=== PATIENT | female | born 1965 | race Caucasian/White ===

== ENCOUNTER 2017-03-12 18:07 | Emergency (ER) | payer MEDICAID, SELFPAY ==
[2017-03-12 18:08] VITALS: BP 156/72; PULSE 73; RESP 16; TEMP 36.6; O2SAT 98; BMI 29.2
--- NOTE | 2017-03-12 18:37 | CT_ITS ---
STUDY: CT ABDOMEN AND PELVIS WITHOUT CONTRAST REASON FOR EXAM: Female, 51 years old. Left flank pain and history of kidney stones RADIATION DOSAGE (If Supplied By Facility): CTDIvol = ( 13.59 ) mGy, DLP = ( 629.11 ) mGycm TECHNIQUE: Transaxial images were obtained from the dome of the diaphragm to the symphysis pubis without oral contrast, and without intravenous contrast. Sagittal and coronal images were reconstructed. Individualized dose optimization techniques were used for this CT. COMPARISON: None. FINDINGS: The visualized lung bases are unremarkable. The visualized portions of the heart are within normal limits. Normal liver. There is a solitary gallstone. Normal spleen. Normal pancreas. Normal bilateral adrenal glands. Multiple punctate nonobstructing nephroliths and a 5 mm urolith in the renal pelvis. Multiple punctate nonobstructing nephroliths noted on the left. There is a 3 mm to 4 stone at the left ureteropelvic junction causing mild hydronephrosis. Normal visualized stomach. Normal small intestine. Normal colon. There is non-visualization of the appendix. Normal abdominal aorta. Normal inferior vena cava. Normal retroperitoneum. Normal urinary bladder. Uterus appears normal. Normal abdominal wall. Normal osseous structures. CT/Abdomen/Pelvis without Cont IMPRESSION: Mild left hydronephrosis due to a 3 to 4 mm ureterolith at the ureteropelvic junction. Multiple punctate bilateral nonobstructing nephroliths. Gallstone. Electronically Signed: Amandeep Benoit MD at 19:52 EST , Service support ,
[2017-03-12] MEDS: 0.9% Normal Saline 1,000 ML 1000 ML IV (18:45)
[2017-03-12] MEDS: Ondansetron 4 MG/2 ML Vial IV (18:45)
[2017-03-12 18:47] VITALS: BP 160/79; PULSE 78; RESP 14; O2SAT 98
[2017-03-12 18:53] LABS: Mucous, Urine 0 SEEN /hpf (<or=2+); Squamous Epithelial Cells - UA 0 SEEN /hpf (5-10)
[2017-03-12 18:57] LABS: Absolute Lymphocyte Count 1.61 X10^3/ul (0.83-4.51); Absolute Neutrophil Count 13.1 X10^3/uL (2.0-7.7); Basophil# 0.02 X10^3/uL; Basophil% 0.1 % (0-1); Eosinophil# 0.06 X10^3/uL; Eosinophils% 0.4 % (0-5); Hematocrit 39.9 % (37-47); Lymphocyte # 1.61 X10^3/ul (4.0); Lymphocyte % 10.5 % (19-41); Mean Corp Hgb Conc 32.6 g/gl (32-36); Mean Corpuscular Hgb 27.7 pg (27.0-32.0); Mean Corpuscular Volume 85.1 fL (81-99); Mean Platelet Vol. 11.4 fl (6.2-12.0); Monocyte# 0.54 X10^3/uL; Monocyte% 3.5 % (0-10); Neutrophil # 13.05 X10^3/uL (2.7-7.7); Neutrophil % 85.4 % (47-70); Platelet Count 329 K/mm3 (150-450); RBC Distribution Width CV 13.4 % (11.6-14.6); RBC Distribution Width SD 41.1 fl (35.1-43.9); Red Blood Count 4.69 M/mm3 (4.2-5.4); White Blood Count 15.3 K/mm3 (4.4-11.0)
[2017-03-12 18:58] LABS: POSITIVE COUNT NO; POSITIVE DIFFERENTIAL NO; POSITIVE MORPHOLOGY NO
[2017-03-12 19:04] LABS: Color, Urine Brown (Yellow); Glucose, Dipstick 250 mg/dl (Normal); Internal QC Validated? YES +Cl - CLEAR BKGD; Ketone-Dipstick 50 mg/dl (Negative); Leukocyte Esterase-Dipstick 100 /ul (Negative); Nitrite-Dipstick Negative (Negative); Occult Blood-Urine 250 /ul (Negative); Pregnancy, Urine Negative Negative; Protein-Dipstick 100 mg/dl (Negative); Specific Gravity, Urine 1.025 (1.002-1.030); Urine Bilirubin Dipstick Negative (Negative); Urine Clarity Turbid (Clear); Urine Urobilinogen Normal (Normal); Urine pH 6.5 (5.0 - 8.0)
[2017-03-12 19:06] VITALS: BP 156/78; PULSE 77; RESP 15; O2SAT 97
[2017-03-12 19:09] LABS: Bacteria 1+ /hpf (None Seen); Red Blood Cells-Urine > 100 SEEN /hpf (0-5); White Blood Cells 0-5 SEEN /hpf (0-5)
[2017-03-12 19:10] LABS: Yeast-Urine RARE /hpf (None Seen)
[2017-03-12 19:16] LABS: ALB/GLOB Ratio 1.2 RATIO (0.9-2.4); AST(SGOT) 13 U/L (15-37); Alanine Aminotransfer ALT/SGPT 18 U/L (12-78); Albumin, Serum 4.2 g/dL (3.4-5.0); Alkaline Phosphatase 81 U/L (45-117); Anion Gap 9 (5-15); BUN 16 mg/dL (7-18); BUN/Creat Ratio 15.5 RATIO (10-20); Calcium,Total 8.8 mg/dL (8.5-10.1); Chloride 102 mmol/L (98-107); Creatinine, Serum 1.03 mg/dL (0.55-1.02); EST Glomerular Filtration Rate 60 mL/min (>60); Est Glom Filt Rate - Afr Amer 73 mL/min (>60); Estimated Creatinine Clearance 54.65 ml/min; Globulin 3.6 g/dL (2.2-4.2); Glucose 205 mg/dL (70-110); Lipase 492 U/L (73-393); Potassium 3.8 mmol/L (3.5-5.1); Protein, Total 7.8 g/dL (6.4-8.2); Sodium Level 137 mmol/L (136-145)
[2017-03-12] MEDS: Ketorolac 30 MG/ML Syringe IV (19:42)
[2017-03-12 20:49] VITALS: BP 169/69; PULSE 93; RESP 16; O2SAT 97
--- NOTE | 2017-03-12 20:50 | ED.VISSUMM ---
- ER Visit Summary Date of Service: 03/12/17 Chief Complaint: Flank pain History of Present Illness: The patient is a 51 F who states that she was recently started back on her medications for diabetes and hypothyroidism. She states she has had nausea vomiting diarrhea and she had her diabetes medicine changed. Now she notes pain on her left side with worsening nausea vomiting. She also notes blood in the urine. She notes a remote history of kidney stones. No fevers. Physical Examination: Febrile vital signs are stable. Patient has some mild left-sided CVA tenderness and left lower quadrant abdominal tenderness. She appears uncomfortable. Test Results: Labs show hematuria. CT the flank demonstrated a 3-4 mm proximal stone with mild hydronephrosis. Emergency Department Course and Treatment: Received morphine Zofran and Toradol. Her pain is improved. She will be discharged home on Jackson Zofran and Flomax. She is to follow-up with Dr. Key from urology Impression: 1. Left kidney stone with colic This note was generated with [employer] dictation software. It may contain incorrect words, spelling, and punctuation that were not noted in review of the chart prior to signing ED Disposition - Plan for ED Patient: Disposition: Home or Assisted Living Chief Complaint: Flank Pain Instructions: ED Stone Renal W Colic Prescriptions: Hydrocodone Bitart/Apap 5-325 [Jackson 5/325] 1 - 2 tab PO Q4H PRN PRN #20 tab PRN Reason: Pain Ondansetron [Zofran Odt] 4 mg PO Q8H PRN PRN #10 tab PRN Reason: Nausea Tamsulosin HCl [Flomax] 0.4 mg PO DAILY #7 cap Referrals: Ivan Bello DO [Primary Care Provider] - Fadi Key MD [STAFF PHYSICIAN] - Additional Instructions: If you are worsening or feel your pain is not controlled please return to the emergency department Drink fluids to keep urinating If you feel like you are lightheaded or your blood pressure is low please discontinue the Flomax. Take the Flomax only when going to bed.
[2017-03-12] MEDS: HYDROcodone Bitartrate/Apap 5/325 Tablet PO (21:04)
[2017-03-12 21:06] VITALS: BP 169/69; PULSE 93; RESP 16; O2SAT 97
== END 2017-03-12 21:06 | disposition home or self-care (01) ==
PROVIDERS: Emergency Provider Emergency Medicine; Family Provider Student in an Organized Health Care Education/Training Program; PCP Student in an Organized Health Care Education/Training Program
DX: N20.0 Calculus of kidney (principal); E11.9 Type 2 diabetes mellitus without complications; N13.30 Unspecified hydronephrosis; E03.9 Hypothyroidism, unspecified
CPT/HCPCS: 74176; 80053; 81001; 81025; 83690; 84484; 85025; 96361; 96374; 96375; 96376; 99284; J7030; A4216; J2405

== ENCOUNTER 2017-03-14 14:24 | Observation (INO) | payer OTHER, MEDICAID, SELFPAY ==
[2017-03-14 14:25] VITALS: BP 110/50; PULSE 72; RESP 18; TEMP 36.8; O2SAT 97; BMI 30.2
--- NOTE | 2017-03-14 15:17 | CT_ITS ---
STUDY: CT ABDOMEN AND PELVIS WITHOUT CONTRAST REASON FOR EXAM: Female, 51 years old. Bilateral flank pain RADIATION DOSAGE (If Supplied By Facility): CTDIvol = ( 12.70 ) mGy, DLP = ( 618.76 ) mGycm TECHNIQUE: Transaxial images were obtained from the dome of the diaphragm to the symphysis pubis without oral contrast, and without intravenous contrast. Sagittal and coronal images were reconstructed. Individualized dose optimization techniques were used for this CT. COMPARISON: None. FINDINGS: The visualized lung bases are clear. The visualized portions of the heart and pericardium are within normal limits. There are calcified gallstones noted. The liver demonstrates an unremarkable unenhanced appearance. The spleen is normal in size. The pancreas demonstrates an unremarkable unenhanced appearance. The adrenal glands are within normal limits. There is a stable 3 mm stone in the left proximal ureter with mild left hydronephrosis. There is a 4 mm stone in the right proximal ureter with mild right hydronephrosis. There are punctate bilateral nonobstructing collecting system stones. Normal visualized stomach. There is no bowel obstruction or inflammation. The appendix is visualized and appears normal. The aorta is normal in caliber. There is a small amount of free fluid. There is no free air, fluid collection or lymphadenopathy. There are no destructive osseous lesions. CT/Abdomen/Pelvis without Cont IMPRESSION: Stable 3 mm stone in the left proximal ureter with mild left hydronephrosis. 4 mm stone in the right proximal ureter with mild right hydronephrosis. Small amount free fluid. Electronically Signed: Dimitry Wiggins, at 16:26 EST Tel , Service support ,
--- NOTE | 2017-03-14 15:18 | ED.VISSUMM ---
- ER Visit Summary Date of Service: 03/14/17 Chief Complaint: Right flank pain and abdominal pain History of Present Illness: The patient is a 51 F who was diagnosed with a kidney stone on the left 2 days ago who now presents with flank pain and abdominal pain on the right. Patient states the left-sided abdominal pain had resolved, and she has been straining her urine but did not have a stone. Now she is having right-sided flank pain as of this morning that is radiating around into the right groin. Pain is not controlled with her home pain medications. She has associated nausea and vomiting. Also hematuria. No dysuria, fever, diarrhea, shortness of breath or chest pain. Patient still has her appendix and gallbladder. Physical Examination: Vital signs: afebrile, hemodynamically stable, no hypoxia on room air General: well nourished, well developed, in no distress appears uncomfortable Skin: warm, dry, no rash, no pallor HEENT: normocephalic and atraumatic; PERRL, EOMI, moist mucous membranes Cardiovascular: regular rate and rhythm without murmurs, no peripheral edema, 2+ pulses all distal extremities Respiratory: No increased work of breathing, lungs are clear to auscultation bilaterally, no rales, rhonchi or wheezing Abdominal: Abdomen is soft, diffusely tender, mainly in the right upper and right lower quadrants, with normoactive bowel sounds, no guarding or rebound, no masses, negative CVA tenderness on the left, positive CVA tenderness on the right MSK: Moves all extremities, no deformities, normal strength Neuro: Awake and alert, oriented ?4. No facial droop, sensation and motor function intact and symmetric Test Results: E Abnormal Lab Results 03/14/17 03/14/17 03/14/17 15:02 15:02 15:40 WBC 16.6 H RBC 4.46 Hgb 12.5 Hct 39.3 MCV 88.1 MCH 28.0 MCHC 31.8 L RDW 13.7 RDW Differential 44.3 H Plt Count 279 MPV 11.8 Immature Gran % (Auto) 0.200 Neut % (Auto) 83.7 H Lymph % (Auto) 9.0 L [place] % (Auto) 6.8 Eos % (Auto) 0.1 Baso % (Auto) 0.2 Absolute Neuts (auto) 13.9 H Absolute Lymphs (auto) 1.50 Total Counted Not Reportable Sodium 138 Potassium 4.4 Chloride 105 Carbon Dioxide 25.0 Anion Gap 8 BUN 23 H Creatinine 1.89 H Estim Creat Clear Calc 28.48 Est GFR (MDRD) Af Amer 36 L Est GFR (MDRD) Non-Af 30 L BUN/Creatinine Ratio 12.2 Glucose 195 H Calcium 8.8 Total Bilirubin 0.50 AST 14 L ALT 17 Alkaline Phosphatase 76 Total Protein 7.3 Albumin 3.4 Globulin 3.9 Albumin/Globulin Ratio 0.9 Lipase 121 Urine Color Red Urine Clarity Turbid Urine pH 6.5 Ur Specific Ernul 1.020 Urine Protein 500 H Urine Glucose (UA) Normal Urine Ketones 15 H Urine Occult Blood 250 H Urine Nitrite Negative Urine Bilirubin Negative Urine Urobilinogen Normal Ur Leukocyte Esterase 25 H Urine RBC > 100 SEEN Urine WBC 0-5 SEEN Ur Squamous Epith Cells 5-10 SEEN Urine Bacteria 0 SEEN Urine Mucus 0 SEEN mergency Department Course and Treatment: Patient was given IV hydration, Toradol and Zofran for symptomatic relief. She had minor improvement but continued to have pain and required further pain control with morphine. Labs were remarkable for leukocytosis of 16.6. Creatinine was elevated to 1.89, and was 1.03 at her check 2 days ago. Urine was positive for blood but negative for infection. Given patient's new complaint on the right side, a CT scan was repeated and now showed a 4 mm stone in the right proximal ureter and left 3 mm proximal stone in the ureter unchanged from last evaluation. Bilateral mild hydronephrosis. Patient states she feels like she has to urinate but nothing will come out. Because of this she was straight cathed and it showed very little urine. Because of patient's worsening renal function, concern for decreased urine output, and intractable pain, patient was discussed with Dr. Key and admitted for further management of her bilateral obstructing kidney stones. Treatment Plan: [] Disposition: [] Impression: Bilateral urolithiasis with colic, intractable pain, acute renal insufficiency This note was generated with [employer] software. It may contain incorrect words, spelling, and punctuation that were not noted in review of the chart prior to signing ED Disposition - Plan for ED Patient: Disposition: Acute Care Hospital [facility] Chief Complaint: Flank Pain
[2017-03-14] MEDS: 0.9% Normal Saline 1,000 ML 250 ML IV (15:34)
[2017-03-14] MEDS: Ondansetron 4 MG/2 ML Vial IV (15:34)
[2017-03-14] MEDS: Ketorolac 30 MG/ML Syringe IV (15:34)
[2017-03-14 15:54] LABS: Bacteria 0 SEEN /hpf (None Seen); Mucous, Urine 0 SEEN /hpf (<or=2+)
[2017-03-14 15:55] LABS: Color, Urine Red (Yellow); Glucose, Dipstick Normal (Normal); Ketone-Dipstick 15 mg/dl (Negative); Leukocyte Esterase-Dipstick 25 /ul (Negative); Nitrite-Dipstick Negative (Negative); Occult Blood-Urine 250 /ul (Negative); Protein-Dipstick 500 mg/dl (Negative); Urine Bilirubin Dipstick Negative (Negative); Urine Clarity Turbid (Clear); Urine Urobilinogen Normal (Normal); Urine pH 6.5 (5.0 - 8.0)
[2017-03-14 16:06] LABS: Absolute Neutrophil Count 13.9 X10^3/uL (2.0-7.7); Basophil# 0.03 X10^3/uL; Basophil% 0.2 % (0-1); Eosinophil# 0.01 X10^3/uL; Eosinophils% 0.1 % (0-5); Hematocrit 39.3 % (37-47); Hemoglobin 12.5 g/dl (12.0-15.0); Mean Corp Hgb Conc 31.8 g/gl (32-36); Mean Corpuscular Volume 88.1 fL (81-99); Mean Platelet Vol. 11.8 fl (6.2-12.0); Monocyte# 1.13 X10^3/uL; Monocyte% 6.8 % (0-10); Neutrophil # 13.91 X10^3/uL (2.7-7.7); Neutrophil % 83.7 % (47-70); Platelet Count 279 K/mm3 (150-450); RBC Distribution Width CV 13.7 % (11.6-14.6); RBC Distribution Width SD 44.3 fl (35.1-43.9); Red Blood Count 4.46 M/mm3 (4.2-5.4); White Blood Count 16.6 K/mm3 (4.4-11.0)
[2017-03-14 16:07] LABS: POSITIVE COUNT NO; POSITIVE DIFFERENTIAL NO; POSITIVE MORPHOLOGY NO
[2017-03-14 16:07] LABS: Red Blood Cells-Urine > 100 SEEN /hpf (0-5); Squamous Epithelial Cells - UA 5-10 SEEN /hpf (5-10); White Blood Cells 0-5 SEEN /hpf (0-5)
[2017-03-14 16:23] LABS: ALB/GLOB Ratio 0.9 RATIO (0.9-2.4); AST(SGOT) 14 U/L (15-37); Alanine Aminotransfer ALT/SGPT 17 U/L (13-56); Albumin, Serum 3.4 g/dL (3.2-5.0); Alkaline Phosphatase 76 U/L (45-117); Anion Gap 8 (5-15); BUN 23 mg/dL (7-18); BUN/Creat Ratio 12.2 RATIO (10-20); Calcium,Total 8.8 mg/dL (8.5-10.1); Chloride 105 mmol/L (98-107); Creatinine, Serum 1.89 mg/dL (0.55-1.02); EST Glomerular Filtration Rate 30 mL/min (>60); Est Glom Filt Rate - Afr Amer 36 mL/min (>60); Estimated Creatinine Clearance 28.48 ml/min; Globulin 3.9 g/dL (2.2-4.2); Glucose 195 mg/dL (70-110); Lipase 121 U/L (73-393); Potassium 4.4 mmol/L (3.5-5.1); Protein, Total 7.3 g/dL (6.4-8.2); Sodium Level 138 mmol/L (136-145)
[2017-03-14 16:25] VITALS: BP 140/65; PULSE 79; RESP 14
--- NOTE | 2017-03-14 18:21 | ED.RN ---
SLIGHTLY PINK TINGED RETURN OF SAME. PT REPORTS SHE CANNOT URINATE. PAIN LOCALIZED RLQ. CATHETER REMOVED. BLADDER SCAN 30ML. DR PEREZ.
--- NOTE | 2017-03-14 19:44 | PCM.HP.STD ---
Problem List (1) Bilateral kidney stones Status: Acute (2) Acute renal insufficiency Status: Acute (3) Renal colic, bilateral Status: Acute (4) Nausea & vomiting Status: Acute Qualifiers: Vomiting type: unspecified Vomiting Intractability: intractable Qualified Code(s): R11.2 - Nausea with vomiting, unspecified History of Present Illness Date of Admission: 03/14/17 Chief Complaint: kidney stone, nausea and vomiting, acute renal insufficiency The patient is a 51 F who was diagnosed with a kidney stone on the LEFT 2 days ago who now presents with RIGHT flank pain and abdominal pain. Patient states the left-sided abdominal pain had resolved, and she has been straining her urine but did not have a stone. Now she is having right-sided flank pain as of this morning that is radiating around into the right groin. Pain is not controlled with her home pain medications. She has associated nausea and vomiting. Also hematuria. No dysuria, fever, diarrhea, shortness of breath or chest pain. Patient still has her appendix and gallbladder. CT scan done and has bilateral hydronephrosis and bilateral ureteral stones blocking both kidneys. Past Medical History Allergies metformin Adverse Reaction (Verified 03/14/17 14:27) Upset Stomach Home Medications: Ambulatory Orders Medication Instructions Recorded Citalopram [Celexa] 20 mg PO DAILY 04/19/16 Lisinopril [Zestril] 5 mg PO DAILY 04/19/16 GlyBURIDE [Micronase] 5 mg GT DAILY@0800 03/12/17 Hydrocodone Bitart/Apap 5-325 1 - 2 tab PO Q4H PRN PRN #20 tab 03/12/17 [[place] 5/325] Levothyroxine [Synthroid] 100 mcg PO DAILY 03/12/17 Metronidazole 500 mg PO BID 03/12/17 Ondansetron [Zofran Odt] 4 mg PO Q8H PRN PRN #10 tab 03/12/17 Tamsulosin HCl [Flomax] 0.4 mg PO DAILY #7 cap 03/12/17 Surgical History: no surgical history Psychiatric History: No pertinent psych hx 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 Denies: Dysuria Musculoskeletal: Denies: Joint Pain, Joint Tenderness Skin: Denies: Rash, Wounds Neurological: Denies: Numbness, Tingling, Focal weakness Psychiatric: Denies: Anxiety, Depression, Homicidal Ideations, Suicidal Ideations Hematologic/ Lymphatic: Denies: Easy Bruising, Easy Bleeding VTE Information - Inpt Only VTE Present on Admission: No Patient Problems: Active and Suspected Problems Bilateral kidney stones (Acute) Acute renal insufficiency (Acute) Renal colic, bilateral (Acute) Nausea & vomiting (Acute) - Physical Exam General: Alert, Oriented x3, Cooperative HEENT: Atraumatic, PERRLA, EOMI, Normocephalic Neck: Supple, No JVD, Negative Carotid Bruits Lungs: Clear to auscultation, Normal air movement Cardiovascular: Regular rate, No murmurs Abdomen: Bowel Sounds Present, Soft, Non Tender Extremities: No edema, Capillary Refill Less than 3 Seconds Skin: No rashes, No breakdown Musculoskeletal: No Tenderness to Palpation of Joints or Extremities Neurological: Cranial nerves II-XII grossly intact Psych/Mental Status: Normal Affect, Appropriate Vital Signs Temp Pulse Resp BP Pulse Ox 98.2 F 79 14 140/65 H 97 03/14/17 14:25 03/14/17 16:25 03/14/17 16:25 03/14/17 16:25 03/14/17 14:25 Assessment/Plan Active and Suspected Problems Bilateral kidney stones (Acute) Acute renal insufficiency (Acute) Renal colic, bilateral (Acute) Nausea & vomiting (Acute) merary from ER for bilateral stones, blocking both kidneys, acute renal insufficiency and high grade bilateral obstruction. has failed out patient manegement and is admitted for intractable pain and cyclical nausea and vomiting. plan to place stent tomorrow in or or discharge once vomiting stops.
--- NOTE | 2017-03-14 19:50 | HP.PCM_ITS ---
Problem List (1) Bilateral kidney stones Status: Acute (2) Acute renal insufficiency Status: Acute (3) Renal colic, bilateral Status: Acute (4) Nausea & vomiting Status: Acute Qualifiers: Vomiting type: unspecified Vomiting Intractability: intractable Qualified Code(s): R11.2 - Nausea with vomiting, unspecified History of Present Illness Date of Admission: 03/14/17 Chief Complaint: kidney stone, nausea and vomiting, acute renal insufficiency The patient is a 51 F who was diagnosed with a kidney stone on the LEFT 2 days ago who now presents with RIGHT flank pain and abdominal pain. Patient states the left-sided abdominal pain had resolved, and she has been straining her urine but did not have a stone. Now she is having right-sided flank pain as of this morning that is radiating around into the right groin. Pain is not controlled with her home pain medications. She has associated nausea and vomiting. Also hematuria. No dysuria, fever, diarrhea, shortness of breath or chest pain. Patient still has her appendix and gallbladder. CT scan done and has bilateral hydronephrosis and bilateral ureteral stones blocking both kidneys. Past Medical History Allergies metformin Adverse Reaction (Verified 03/14/17 14:27) Upset Stomach Home Medications: Ambulatory Orders Medication Instructions Recorded Citalopram [Celexa] 20 mg PO DAILY 04/19/16 Lisinopril [Zestril] 5 mg PO DAILY 04/19/16 GlyBURIDE [Micronase] 5 mg GT DAILY@0800 03/12/17 Hydrocodone Bitart/Apap 5-325 1 - 2 tab PO Q4H PRN PRN #20 tab 03/12/17 [[place] 5/325] Levothyroxine [Synthroid] 100 mcg PO DAILY 03/12/17 Metronidazole 500 mg PO BID 03/12/17 Ondansetron [Zofran Odt] 4 mg PO Q8H PRN PRN #10 tab 03/12/17 Tamsulosin HCl [Flomax] 0.4 mg PO DAILY #7 cap 03/12/17 Surgical History: no surgical history Psychiatric History: No pertinent psych hx 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 Denies: Dysuria Musculoskeletal: Denies: Joint Pain, Joint Tenderness Skin: Denies: Rash, Wounds Neurological: Denies: Numbness, Tingling, Focal weakness Psychiatric: Denies: Anxiety, Depression, Homicidal Ideations, Suicidal Ideations Hematologic/ Lymphatic: Denies: Easy Bruising, Easy Bleeding VTE Information - Inpt Only VTE Present on Admission: No Patient Problems: Active and Suspected Problems Bilateral kidney stones (Acute) Acute renal insufficiency (Acute) Renal colic, bilateral (Acute) Nausea & vomiting (Acute) - Physical Exam General: Alert, Oriented x3, Cooperative HEENT: Atraumatic, PERRLA, EOMI, Normocephalic Neck: Supple, No JVD, Negative Carotid Bruits Lungs: Clear to auscultation, Normal air movement Cardiovascular: Regular rate, No murmurs Abdomen: Bowel Sounds Present, Soft, Non Tender Extremities: No edema, Capillary Refill Less than 3 Seconds Skin: No rashes, No breakdown Musculoskeletal: No Tenderness to Palpation of Joints or Extremities Neurological: Cranial nerves II-XII grossly intact Psych/Mental Status: Normal Affect, Appropriate Vital Signs Temp Pulse Resp BP Pulse Ox 98.2 F 79 14 140/65 H 97 03/14/17 14:25 03/14/17 16:25 03/14/17 16:25 03/14/17 16:25 03/14/17 14:25 Assessment/Plan Active and Suspected Problems Bilateral kidney stones (Acute) Acute renal insufficiency (Acute) Renal colic, bilateral (Acute) Nausea & vomiting (Acute) merary from ER for bilateral stones, blocking both kidneys, acute renal insufficiency and high grade bilateral obstruction. has failed out patient manegement and is admitted for intractable pain and cyclical nausea and vomiting. plan to place stent tomorrow in or or discharge once vomiting stops.
[2017-03-14 19:53] VITALS: BMI 30.5
[2017-03-14 19:58] VITALS: BMI 30.6
[2017-03-14 20:12] VITALS: BP 135/67; PULSE 72; RESP 16; TEMP 37.3; O2SAT 98
[2017-03-14] MEDS: Acetaminophen 500 MG Tablet PO (20:30)
[2017-03-14] MEDS: Tamsulosin HCl 0.4 MG Capsule PO (20:31)
[2017-03-14] MEDS: Lisinopril 5 MG Tablet PO (20:31)
[2017-03-14] MEDS: Docusate Sodium 100 MG Capsule 200 MG PO (20:32)
[2017-03-14] MEDS: Ciprofloxacin 500 MG Tablet PO (20:33)
[2017-03-14] MEDS: 0.9% Normal Saline 1,000 ML 100 ML IV (20:36)
[2017-03-15] VITALS (10 sets, daily range): BP systolic 90–115; BP diastolic 52–61; PULSE 52–74; RESP 12–16; TEMP 36.6–38.1; O2SAT 91–98; BMI 30.5
[2017-03-15] MEDS: Ondansetron 4 MG/2 ML Vial IV ×2 (02:13→07:56)
--- NOTE | 2017-03-15 05:00 | EKG12_ITS ---
Test Reason : MORNING EKG Blood Pressure : / mmHG Vent. Rate : 059 BPM Atrial Rate : 059 BPM P-R Int : 200 ms QRS Dur : 084 ms QT Int : 382 ms P-R-T Axes : 051 056 048 degrees QTc Int : 378 ms Sinus bradycardia Confirmed by IVANA BARON, SABRINA ([id number]), non linear editor NIDIA MOYER ([id number]) on 03/24/2017 2:33:48 PM Referred By: SPENCER Confirmed By:SABRINA HEATH MD
--- NOTE | 2017-03-15 05:00 | RAD_ITS ---
STUDY: X-RAY - ABDOMEN/PELVIS REASON FOR EXAM: Female, 51 years old. Bilateral kidney stones. TECHNIQUE: AP supine abdomen. COMPARISON: CT abdomen pelvis March 14, 2017. FINDINGS: There is an unremarkable bowel gas pattern. There is no demonstrated free abdominal air. The visualized liver, spleen and kidneys are grossly normal in size and morphology. Normal soft tissue structures. Normal visualized osseous structures. No pathologic calcifications identified. Small urinary tract stones could easily be obscured by overlying bowel gas and stool. RAD/Abdomen Single View IMPRESSION: Nonspecific bowel gas pattern without evidence of obstruction. No pathologic calcifications identified as above. Electronically Signed: Jairon Arceo MD at 6:35 EST , Service support ,
[2017-03-15] MEDS: 0.9% Normal Saline 1,000 ML 100 ML IV ×2 (06:32→15:19)
[2017-03-15 06:38] LABS: Absolute Lymphocyte Count 2.07 X10^3/ul (0.83-4.51); Absolute Neutrophil Count 7.5 X10^3/uL (2.0-7.7); Basophil# 0.01 X10^3/uL; Basophil% 0.1 % (0-1); Eosinophil# 0.09 X10^3/uL; Eosinophils% 0.9 % (0-5); Hematocrit 31.9 % (37-47); Hemoglobin 10.1 g/dl (12.0-15.0); Lymphocyte # 2.07 X10^3/ul (4.0); Lymphocyte % 19.6 % (19-41); Mean Corp Hgb Conc 31.7 g/gl (32-36); Mean Corpuscular Hgb 28.1 pg (27.0-32.0); Mean Corpuscular Volume 88.6 fL (81-99); Mean Platelet Vol. 11.1 fl (6.2-12.0); Monocyte# 0.84 X10^3/uL; Neutrophil # 7.52 X10^3/uL (2.7-7.7); Neutrophil % 71.3 % (47-70); Platelet Count 214 K/mm3 (150-450); RBC Distribution Width CV 13.9 % (11.6-14.6); RBC Distribution Width SD 44.7 fl (35.1-43.9); White Blood Count 10.5 K/mm3 (4.4-11.0)
[2017-03-15 07:16] LABS: Anion Gap 7 (5-15); BUN 31 mg/dL (7-18); BUN/Creat Ratio 10.5 RATIO (10-20); Chloride 109 mmol/L (98-107); Creatinine, Serum 2.96 mg/dL (0.55-1.02); EST Glomerular Filtration Rate 18 mL/min (>60); Est Glom Filt Rate - Afr Amer 22 mL/min (>60); Estimated Creatinine Clearance 18.18 ml/min; Glucose 106 mg/dL (70-110); Potassium 4.5 mmol/L (3.5-5.1); Sodium Level 141 mmol/L (136-145); Thyroid Stim Hormone (TSH) 6.47 uIU/mL (0.358-3.74)
[2017-03-15 07:26] LABS: POSITIVE COUNT NO; POSITIVE DIFFERENTIAL NO; POSITIVE MORPHOLOGY NO
--- NOTE | 2017-03-15 07:38 | PN_ITS ---
Patient Problems: Active and Suspected Problems Bilateral kidney stones (Acute) Acute renal insufficiency (Acute) Renal colic, bilateral (Acute) Nausea & vomiting (Acute) Subjective: 51-year-old female admitted for bilateral ureteral calculi causing bilateral obstruction and hydronephrosis creatinine is now up to 2.9 plan to take the surgery today for bilateral stent placement. On KUB stones are not visible probably radiolucent. N.p.o. for now plan for stent placement at noon. - Physical Exam General: Alert, Oriented x3, Cooperative HEENT: Atraumatic, PERRLA, EOMI, Normocephalic Neck: Supple, No JVD, Negative Carotid Bruits Lungs: Clear to auscultation, Normal air movement Cardiovascular: Regular rate, No murmurs Abdomen: Bowel Sounds Present, Soft, Non Tender Extremities: No edema, Capillary Refill Less than 3 Seconds Skin: No rashes, No breakdown Musculoskeletal: No Tenderness to Palpation of Joints or Extremities Neurological: Cranial nerves II-XII grossly intact Psych/Mental Status: Normal Affect, Appropriate Vital Signs Temp Pulse Resp BP Pulse Ox 98.9 F 58 L 12 98/60 95 03/15/17 07:34 03/15/17 07:34 03/15/17 07:34 03/15/17 07:34 03/15/17 07:34 Oxygen Delivery Method Room Air Weight: 75.8 kg Body Mass Index (BMI) 30.5 Intake and Output for Last 24 Hours 03/13/17 03/14/17 03/15/17 23:59 23:59 23:59 Intake Total 1050 / 1050 Balance 1050 / 1050 Laboratory Tests Past 24 Hrs 03/15/17 03/15/17 03/15/17 06:15 06:15 06:15 WBC 10.5 RBC 3.60 L Hgb 10.1 L Hct 31.9 L MCV 88.6 MCH 28.1 MCHC 31.7 L RDW 13.9 RDW Differential 44.7 H Plt Count 214 MPV 11.1 Immature Gran % (Auto) 0.100 Neut % (Auto) 71.3 H Lymph % (Auto) 19.6 [place] % (Auto) 8.0 Eos % (Auto) 0.9 Baso % (Auto) 0.1 Absolute Neuts (auto) 7.5 Absolute Lymphs (auto) 2.07 Total Counted Not Reportable Sodium 141 Potassium 4.5 Chloride 109 H Carbon Dioxide 25.0 Anion Gap 7 BUN 31 H Creatinine 2.96 H Estim Creat Clear Calc 18.18 Est GFR (MDRD) Af Amer 22 L Est GFR (MDRD) Non-Af 18 L BUN/Creatinine Ratio 10.5 Glucose 106 Hemoglobin A1c Pending Calcium 8.0 L TSH 6.47 H Assessment/Plan Active and Suspected Problems Bilateral kidney stones (Acute) Acute renal insufficiency (Acute) Renal colic, bilateral (Acute) Nausea & vomiting (Acute) 51-year-old female with bilateral obstruction rising creatinine poor urine output plan to place a stent on both sides today in the operating room.
--- NOTE | 2017-03-15 07:47 | NURSING ---
SHANNAN Pham surgery- called at this time and states that patient will be picked up at 1100am for surgery at 1200.
[2017-03-15 08:31] LABS: Hemoglobin A1c 9.6 % (4.2-6.3)
[2017-03-15] MEDS: Ciprofloxacin 500 MG Tablet PO ×2 (10:07→21:49)
[2017-03-15] MEDS: Citalopram 20 MG Tablet PO (10:07)
[2017-03-15] MEDS: Lidocaine Jelly 2% 20 ML Syringe (URO-JET) 20 APPLIC (12:17)
--- NOTE | 2017-03-15 12:29 | PCM.OPRPT ---
Problem List (1) Bilateral kidney stones Status: Acute (2) Acute renal insufficiency Status: Acute (3) Renal colic, bilateral Status: Acute (4) Nausea & vomiting Status: Acute Qualifiers: Vomiting type: unspecified Vomiting Intractability: intractable Qualified Code(s): R11.2 - Nausea with vomiting, unspecified Report of Operation Date of Procedure: 03/15/17 Pre-Operative Diagnosis: Bilateral obstruction high-grade from bilateral ureteral calculi and left and right kidney. Post-Operative Diagnosis: Same and acute renal insufficiency Surgery/Procedure Performed:: Cystoscopy and bilateral stent placements Description of Surgical Findings:: 51-year-old female taken back to the operating room at the smooth induction of anesthesia by Dr. Ma she is placed in dorsal lithotomy position the urethra and vaginal area were prepped and draped in usual sterile fashion went to the bladder with a 21 [place] rigid cystourethroscope I was able to first find the left ureteral orifice I advanced a wire up the left side under fluoroscopy was not able to see the stone but appeared to the stones were radiolucent. I then put a stent up on the left side once a stent was in good position pulled the wire and the stent coiled in the kidney bladder in good position. I then went to the right side advanced a wire up on the right side again the stone was not visible under x-ray is a radiolucent stone and place a stent up on the right side but is pulled the wire and the stent: Bladder in good position a little bit of bleeding from the bladder. I then drained the bladder anesthesia was reversed and she is taken back to PACU in good condition plan to set her up for bilateral ureteroscopy laser of stones and stent removal sometime in the future. Type of Anesthesia:: General Drains: b\l stents - Admit VTE Documentation VTE Present on Admission: No VTE Mechan Device Prophylaxis: SCD's
[2017-03-15] MEDS: Acetaminophen 500 MG Tablet PO ×2 (15:19→21:48)
[2017-03-15] MEDS: oxyCODONE 5 MG Tablet PO ×2 (15:20→21:49)
[2017-03-15] MEDS: Lisinopril 5 MG Tablet PO (15:21)
[2017-03-15] MEDS: Phenazopyridine 95 MG Tablet PO ×2 (18:28→21:49)
[2017-03-15] MEDS: Tamsulosin HCl 0.4 MG Capsule PO (21:49)
[2017-03-16] MEDS: 0.9% Normal Saline 1,000 ML 100 ML IV ×2 (01:03→10:35)
[2017-03-16 01:57] VITALS: BP 105/58; PULSE 69; RESP 18; TEMP 37.3; O2SAT 98
[2017-03-16] MEDS: oxyCODONE 5 MG Tablet PO ×5 (02:26→19:07)
[2017-03-16] MEDS: Levothyroxine 100 MCG Tablet PO (06:36)
[2017-03-16 07:45] VITALS: BP 107/50; PULSE 69; RESP 16; TEMP 37.6; O2SAT 93
--- NOTE | 2017-03-16 08:00 | PCM.PROGNOTE ---
Patient Problems: Active and Suspected Problems Bilateral kidney stones (Acute) Acute renal insufficiency (Acute) Renal colic, bilateral (Acute) Nausea & vomiting (Acute) Subjective: doing better after stent placement having pain with urination expected. - Physical Exam General: Alert, Oriented x3, Cooperative HEENT: Atraumatic, PERRLA, EOMI, Normocephalic Neck: Supple, No JVD, Negative Carotid Bruits Lungs: Clear to auscultation, Normal air movement Cardiovascular: Regular rate, No murmurs Abdomen: Bowel Sounds Present, Soft, Non Tender Extremities: No edema, Capillary Refill Less than 3 Seconds Skin: No rashes, No breakdown Musculoskeletal: No Tenderness to Palpation of Joints or Extremities Neurological: Cranial nerves II-XII grossly intact Psych/Mental Status: Normal Affect, Appropriate Vital Signs Temp Pulse Resp BP Pulse Ox 99.6 F H 69 16 107/50 L 93 03/16/17 07:45 03/16/17 07:45 03/16/17 07:45 03/16/17 07:45 03/16/17 07:45 Oxygen Flow Rate 6 Oxygen Delivery Method Room Air Weight: 75.8 kg Body Mass Index (BMI) 30.5 Intake and Output for Last 24 Hours 03/14/17 03/15/17 03/16/17 23:59 23:59 23:59 Intake Total 3065 / 3065 1953 / 1953 Output Total 200 / 200 750 / 750 Balance 2865 / 2865 1203 / 1203 Laboratory Tests Past 24 Hrs 03/15/17 03/15/17 03/15/17 06:15 08:30 08:30 Hemoglobin A1c 9.6 H Stone Size Pending Stone Weight Pending Stone Color Pending Miscellaneous Test Cancelled Assessment/Plan Active and Suspected Problems Bilateral kidney stones (Acute) Acute renal insufficiency (Acute) Renal colic, bilateral (Acute) Nausea & vomiting (Acute) check bmp this am if better then likely home tomorrow in am.
--- NOTE | 2017-03-16 08:02 | RAD_ITS ---
STUDY: X-RAY - ABDOMEN/PELVIS REASON FOR EXAM: Female, 51 years old. Abdominal distention. Bilateral ureteral stents. TECHNIQUE: Two AP supine views of the abdomen and pelvis. COMPARISON: Comparison is made with prior examination dated September 12, 2017. FINDINGS: Elevation of the right hemidiaphragm. Mild increased markings at the lung bases suggestive of the bibasilar atelectasis. There is a moderate amount of colonic fecal material. Since prior study, bilateral ureteral stents have been placed. The proximal tips of both stents in the renal pelvis and the distal tips in the urinary bladder. No abnormal calcifications are seen overlying the kidneys or course of the ureters. Normal soft tissue structures. Normal visualized osseous structures. RAD/Abdomen Single View IMPRESSION: Double-J stent catheters are seen. Electronically Signed: Adin Villeda MD at 12:36 EST Tel [phone], Service support ,
[2017-03-16 08:54] LABS: Anion Gap 6 (5-15); BUN 20 mg/dL (7-18); BUN/Creat Ratio 13.7 RATIO (10-20); Calcium,Total 8.1 mg/dL (8.5-10.1); Chloride 112 mmol/L (98-107); Creatinine, Serum 1.46 mg/dL (0.55-1.02); EST Glomerular Filtration Rate 40 mL/min (>60); Est Glom Filt Rate - Afr Amer 49 mL/min (>60); Estimated Creatinine Clearance 36.86 ml/min; Glucose 85 mg/dL (70-110); Potassium 4.1 mmol/L (3.5-5.1); Sodium Level 143 mmol/L (136-145)
--- NOTE | 2017-03-16 09:54 | NURSING ---
Addendum entered by Lydia Alford 03/16/17 10:22: pt returned to unit at this time. Original Note: TONY Mcclain assisted patient off of unit at this time and transported to radiology per order.
[2017-03-16] MEDS: Lisinopril 5 MG Tablet PO (10:18)
[2017-03-16] MEDS: Phenazopyridine 95 MG Tablet PO ×2 (10:18→21:24)
[2017-03-16] MEDS: Citalopram 20 MG Tablet PO (10:18)
[2017-03-16] MEDS: Ciprofloxacin 500 MG Tablet PO ×2 (10:18→21:24)
[2017-03-16] MEDS: Bisacodyl 5 MG Tablet 10 MG PO (10:19)
[2017-03-16] MEDS: Acetaminophen 500 MG Tablet PO ×3 (10:35→19:07)
[2017-03-16 13:31] VITALS: BP 118/69; PULSE 75; RESP 18; TEMP 37; O2SAT 93
[2017-03-16 19:43] VITALS: BP 119/58; PULSE 74; RESP 18; TEMP 37; O2SAT 94
[2017-03-16] MEDS: Docusate Sodium 100 MG Capsule 200 MG PO (21:24)
[2017-03-16] MEDS: Tamsulosin HCl 0.4 MG Capsule PO (21:24)
[2017-03-17] MEDS: Acetaminophen 500 MG Tablet PO ×2 (00:02→05:15)
[2017-03-17] MEDS: oxyCODONE 5 MG Tablet PO ×2 (00:03→05:14)
[2017-03-17 03:18] VITALS: BP 115/64; PULSE 68; RESP 18; TEMP 36.8; O2SAT 93
[2017-03-17] MEDS: Levothyroxine 100 MCG Tablet PO (05:14)
--- NOTE | 2017-03-17 07:03 | PCM.DC.URO ---
Discharge Diet: Light diet - advance as tolerated Discharge Activity: Return to Normal Activity Call your doctor if you observe: Fever of 101 or Higher Allergies/Adverse Reactions: Allergies metformin Adverse Reaction (Verified 03/14/17 14:27) Upset Stomach Medications to take at Discharge Citalopram [Celexa] 20 mg PO DAILY 04/19/16 Lisinopril [Zestril] 5 mg PO DAILY 04/19/16 GlyBURIDE [Micronase] 5 mg PO DAILY@0800 03/12/17 Hydrocodone Bitart/Apap 5-325 [[place] 5/325] 1 - 2 tab PO Q4H PRN PRN #20 tab 03/12/17 Levothyroxine [Synthroid] 100 mcg PO DAILY 03/12/17 Metronidazole 500 mg PO BID 03/12/17 Ondansetron [Zofran Odt] 4 mg PO Q8H PRN PRN #10 tab 03/12/17 Tamsulosin HCl [Flomax] 0.4 mg PO DAILY #7 cap 03/12/17 Ciprofloxacin [Cipro] 500 mg PO BID #6 tab 03/17/17 Hydrocodone/Acetaminophen [[place] 5-325 Tablet] 1 ea PO Q4H PRN PRN #20 tab 03/17/17 Phenazopyridine [Pyridium] 100 mg PO TID PRN #20 tab 03/17/17 The following prescriptions were given: Hydrocodone/Acetaminophen [[place] 5-325 Tablet] 1 ea PO Q4H PRN PRN #20 tab PRN Reason: Pain Ciprofloxacin [Cipro] 500 mg PO BID #6 tab Phenazopyridine [Pyridium] 100 mg PO TID PRN #20 tab PRN Reason: burning Primary Care Physician: Ivan Bello DO [Primary Care Provider] - Please Follow Up With: Fadi Key MD When: call office to get set up for surgery.
--- NOTE | 2017-03-17 07:05 | PCM.DC.SUM ---
Discharge Date and Diagnosis - Problem List Patient Problems: Active and Suspected Problems Bilateral kidney stones (Acute) Acute renal insufficiency (Acute) Renal colic, bilateral (Acute) Nausea & vomiting (Acute) Date of Admission: 03/14/17 Date of Discharge: 03/17/17 - Primary Discharge Diagnosis Active and Suspected Problems Bilateral kidney stones (Acute) Acute renal insufficiency (Acute) Renal colic, bilateral (Acute) Nausea & vomiting (Acute) Hospital Course and Treatment Operations: - - Cystoscopy and bilateral stent placement Procedures: None Summary of Care Provided: The patient is a 51 year old female who presented to the hospital with bilateral ureteral calculi and onset of acute renal failure rising creatinine she was admitted to the hospital for pain control and her acute blockage from both kidneys from bilateral ureteral calculi she is taken to the operating room for cystoscopy and bilateral stent placement her creatinine went up to 3.2 and last check was done at 1.46 she started making urine. Her pain is under control except for some minor burning with urination was expected with the stent she will be given Pyridium to help with this discomfort. She will be discharged home today in good condition my office will set her up for surgery for bilateral ureteroscopy and laser both the stones and hopefully removal of the stents. Should be discharged home today in good condition. Discharge Diet: Light diet - advance as tolerated Discharge Activity: Return to Normal Activity Call your doctor if you observe: Fever of 101 or Higher Home Medications: Medications to take at Discharge Citalopram [Celexa] 20 mg PO DAILY 04/19/16 Lisinopril [Zestril] 5 mg PO DAILY 04/19/16 GlyBURIDE [Micronase] 5 mg PO DAILY@0800 03/12/17 Hydrocodone Bitart/Apap 5-325 [[place] 5/325] 1 - 2 tab PO Q4H PRN PRN #20 tab 03/12/17 Levothyroxine [Synthroid] 100 mcg PO DAILY 03/12/17 Metronidazole 500 mg PO BID 03/12/17 Ondansetron [Zofran Odt] 4 mg PO Q8H PRN PRN #10 tab 03/12/17 Tamsulosin HCl [Flomax] 0.4 mg PO DAILY #7 cap 03/12/17 Ciprofloxacin [Cipro] 500 mg PO BID #6 tab 03/17/17 Hydrocodone/Acetaminophen [[place] 5-325 Tablet] 1 ea PO Q4H PRN PRN #20 tab 03/17/17 Phenazopyridine [Pyridium] 100 mg PO TID PRN #20 tab 03/17/17 Following Prescrptions Were Given to Patient: Hydrocodone/Acetaminophen [[place] 5-325 Tablet] 1 ea PO Q4H PRN PRN #20 tab PRN Reason: Pain Ciprofloxacin [Cipro] 500 mg PO BID #6 tab Phenazopyridine [Pyridium] 100 mg PO TID PRN #20 tab PRN Reason: burning Primary Care Physician: Ivan Bello DO [Primary Care Provider] - Please Follow Up With: Fadi Key MD When: call office to get set up for surgery. Meaningful Use Info Meaningful Use Diagnoses (Choose all that apply): None applicable
[2017-03-17 08:08] VITALS: BP 117/72; PULSE 62; RESP 16; TEMP 36.7; O2SAT 94
--- NOTE | 2017-03-17 08:17 | NURSING ---
Work note provided per pt. request for 03/14/17-03/17/17.
[2017-03-22 20:07] LABS: Size 5x4x3 mm (.); Uric Acid 90 % (.)
== END 2017-03-17 08:45 | disposition home or self-care (01) ==
LOC: ED 15:22 → MS2 19:17
PROVIDERS: Anesthesiology; Admitting Provider Urology; Emergency Provider Emergency Medicine; Family Provider Student in an Organized Health Care Education/Training Program; PCP Student in an Organized Health Care Education/Training Program; Visit Provider Urology
PROC: (CPT 52332; principal; 2017-03-15 09:15)
DX: N13.2 Hydronephrosis with renal and ureteral calculous obstruction (principal); N28.9 Disorder of kidney and ureter, unspecified; R11.2 Nausea with vomiting, unspecified; E11.9 Type 2 diabetes mellitus without complications; F41.9 Anxiety disorder, unspecified; F32.9 Major depressive disorder, single episode, unspecified; I10 Essential (primary) hypertension; R00.1 Bradycardia, unspecified; Z79.899 Other long term (current) drug therapy; Z87.891 Personal history of nicotine dependence
CPT/HCPCS: 00910; 52332 ×2; 36415; 74018; 74176; 76000; 80048; 80053; 81001; 82360; 83036; 83690; 84443; 85025; 93005; 96361; 96374; 96375; 96376; 99218; 99283; J7030; P9612; A4216; C1769; C1874; G0378; J2405

== ENCOUNTER 2017-03-31 06:50 | Day surgery (SDC) | payer OTHER, MEDICAID, SELFPAY ==
[2017-03-31 07:22] VITALS: BP 170/87; PULSE 75; RESP 16; TEMP 36.8; O2SAT 98; BMI 29.1
[2017-03-31 07:41] LABS: Bedside Glucose 146 mg/dL (70-110)
[2017-03-31] MEDS: Cefazolin 2 GM in 0.9% Normal Saline 100 ML IV (08:35)
--- NOTE | 2017-03-31 09:37 | PCM.OPRPT ---
Problem List (1) Bilateral kidney stones Status: Acute Report of Operation Date of Procedure: 03/31/17 Pre-Operative Diagnosis: Bilateral renal calculi causing bilateral obstruction status post stent placement Post-Operative Diagnosis: Same Surgery/Procedure Performed:: Cystoscopy, left retrograde pyelogram, left ureteroscopy laser of stone in the kidney, laser lithotripsy. And removal of left stent. Right retrograde pyelogram, right ureteroscopy laser lithotripsy of stone and removal of the right stent. Description of Surgical Findings:: 51-year-old female taken back to the operating room at the smooth induction of general anesthesia she was placed in dorsal lithotomy position. She had bilateral stents in place for bilateral obstruction I then grabbed the existing stent from the left side pulled out the meatus advanced a wire up on the left side left the wire in place the next a wire went in with a flexible ureteroscope. When up the ureter and found a large stone in the pelvis of the left kidney, and the renal pelvis. I then used laser lithotripsy and laser the stone little tiny pieces once I was satisfied is completely lasered then I performed a retrograde pyelogram and then work my way down the ureter and looks like the ureter was draining fairly nicely. I would then went to the right side grabbed the existing stent but a wire through the stent left the wire in place and then went next to the wire with the flexible ureteroscope went all the way up to the kidney inspected the upper pole midpole lower pole found a stone in lower pole the kidney and then lasered the stone little tiny pieces using a laser lithotripsy 270 ?m laser fiber. Once the stone was lasered completely into tiny pieces I worked my way down the ureter the contrast of the kidney there is good drainage so I decided not to leave a stent patient's bladder was drained and she was taken back to the PACU in good condition plan to see her back in 2 weeks for an appointment. Type of Anesthesia:: General Drains: none - Admit VTE Documentation VTE Present on Admission: No VTE Mechan Device Prophylaxis: SCD's VTE Pharm Prophylaxis ordered?: No Reason prophylaxis not ordered:: Treatment Not Indicated
[2017-03-31 09:38] VITALS: BP 112/69; BP 170/87; PULSE 71; RESP 12; TEMP 36.5; O2SAT 94
--- NOTE | 2017-03-31 09:41 | PCM.DC.URO ---
Discharge Diet: Light diet - advance as tolerated Discharge Activity: Return to Normal Activity Call your doctor if your incision/area has: Continuous Slow Oozing Call your doctor if you observe: Fever of 101 or Higher Suture Line Care: Avoid Pulling/Pushing, Avoid Pinching/Bending Instructions: Treating Kidney Stones: Ureteroscopic Stone Removal Additional Instructions: NO Stents, push fluids. Allergies/Adverse Reactions: Allergies metformin Adverse Reaction (Verified 03/24/17 14:10) Upset Stomach Medications to take at Discharge Citalopram [Celexa] 20 mg PO DAILY 04/19/16 Lisinopril [Zestril] 5 mg PO DAILY 04/19/16 GlyBURIDE [Micronase] 5 mg PO DAILY@0800 03/12/17 Hydrocodone Bitart/Apap 5-325 [[place] 5/325] 1 - 2 tab PO Q4H PRN PRN #20 tab 03/12/17 Levothyroxine [Synthroid] 100 mcg PO DAILY 03/12/17 Ondansetron [Zofran Odt] 4 mg PO Q8H PRN PRN #10 tab 03/12/17 Phenazopyridine [Pyridium] 100 mg PO TID PRN #20 tab 03/17/17 Ciprofloxacin [Cipro] 500 mg PO BID #10 tab 03/31/17 Hydrocodone Bitart/Apap 5-325 [[place] 5MG-325MG] 1 tab PO Q6H PRN PRN 5 Days #20 tab 03/31/17 Phenazopyridine HCl [Pyridium] 100 mg PO BID #14 tab 03/31/17 The following prescriptions were given: Hydrocodone Bitart/Apap 5-325 [[place] 5MG-325MG] 1 tab PO Q6H PRN PRN 5 Days #20 tab PRN Reason: Pain Ciprofloxacin [Cipro] 500 mg PO BID #10 tab Phenazopyridine HCl [Pyridium] 100 mg PO BID #14 tab Primary Care Physician: Ivan Bello DO [Primary Care Provider] - Please Follow Up With: Fadi Key MD - call if need to change appt. When: appt wednesdayApr 12 at 1:45 pm for follow.
[2017-03-31 09:45] VITALS: BP 126/73; BP 170/87; PULSE 75; RESP 16; O2SAT 96
[2017-03-31 10:00] VITALS: BP 142/79; BP 170/87; PULSE 67; RESP 16; O2SAT 97
[2017-03-31 10:05] LABS: Bedside Glucose 105 mg/dL (70-110)
[2017-03-31 10:15] VITALS: BP 155/80; BP 170/87; PULSE 66; RESP 16; TEMP 36.3; O2SAT 98
[2017-03-31 11:15] VITALS: BP 170/87
== END 2017-03-31 11:30 | disposition home or self-care (01) ==
LOC: SDC 06:51 → AC 06:52
PROVIDERS: Family Provider Student in an Organized Health Care Education/Training Program; PCP Student in an Organized Health Care Education/Training Program; Visit Provider Urology
PROC: 0TJ98ZZ Inspection of Ureter, Via Natural or Artificial Opening Endoscopic (ICD-10-PCS; CPT 52352; principal; 2017-03-31 08:50)
DX: N20.0 Calculus of kidney (principal); I10 Essential (primary) hypertension; J45.909 Unspecified asthma, uncomplicated; E11.9 Type 2 diabetes mellitus without complications; F32.9 Major depressive disorder, single episode, unspecified; F41.9 Anxiety disorder, unspecified; Z87.891 Personal history of nicotine dependence
CPT/HCPCS: 52356; 76000; 82962; J7120; C1769; J2405

== ENCOUNTER → 2017-04-12 18:36 | Outpatient (CLI) | payer OTHER, MEDICAID, SELFPAY | PROVIDERS: Family Provider Student in an Organized Health Care Education/Training Program; PCP Student in an Organized Health Care Education/Training Program; Visit Provider Urology | DX: R31.9 Hematuria, unspecified (principal) | CPT/HCPCS: 87086 ==

== ENCOUNTER → 2017-04-13 14:50 | Outpatient (CLI) | payer MEDICAID, SELFPAY ==
--- NOTE | 2017-04-13 14:55 | US_ITS ---
STUDY: RENAL ULTRASOUND - COMPLETE REASON FOR EXAM: Female, 51 years old. Bilateral flank pain. History of bilateral nephrolithiasis. TECHNIQUE: Ultrasound evaluation of the kidneys was performed with real-time and static sutherland-scale imaging. COMPARISON: Comparison is made with prior CT scan and abdomen dated September 11, 2017. FINDINGS: RIGHT KIDNEY: Normal location of the right kidney, which is normal in size. The right kidney measures 11.0 cm x 5.0 cm x 4.4 cm. There is a normal cortex of the right kidney. The renal cortex measures 1.3 cm. There is no right renal mass or cyst. Several small nonobstructive intrarenal calculi are seen. The largest measures 5 mm. There is no right hydronephrosis. DISTAL RIGHT URETER: There is non-visualization of the distal right ureter. There is no demonstrated right ureterovesical junction calculus. There is a visualized right ureteral jet. LEFT KIDNEY: Normal location of the left kidney, which is normal in size. The left kidney measures 11.0 cm x 5.1 cm x 5.6 cm. There is a normal cortex of the left kidney. The renal cortex measures 1.7 cm. There is no left renal mass or cyst. 2 nonobstructive intrarenal calculi are seen. The larger measures 4 mm. There is no left hydronephrosis. DISTAL LEFT URETER: There is non-visualization of the distal left ureter. There is no demonstrated left ureterovesical junction calculus. There is a visualized left ureteral jet. BLADDER: The distended urinary bladder has a volume of 58.4 ml. There is a normal wall thickness of the distended urinary bladder. There is no demonstrated mass within the urinary bladder. There are no demonstrated bladder calculi. US/Kidney and Bladder IMPRESSION: Bilateral nonobstructive intrarenal calculi. Electronically Signed: Adin Villeda MD at 10:40 EST Tel [phone], Service support ,
== END ==
PROVIDERS: Family Provider Student in an Organized Health Care Education/Training Program; PCP Student in an Organized Health Care Education/Training Program; Visit Provider Urology
DX: N20.0 Calculus of kidney (principal)
CPT/HCPCS: 76770

== ENCOUNTER 2017-08-16 16:33 | Emergency (ER) | payer MEDICAID, SELFPAY ==
[2017-08-16 16:34] VITALS: BP 168/96; PULSE 114; RESP 17; TEMP 37.2; O2SAT 99; BMI 31.4
[2017-08-16 17:16] LABS: Mucous, Urine 0 SEEN /hpf (<or=2+)
[2017-08-16 17:20] LABS: Color, Urine Yellow (Yellow); Glucose, Dipstick Normal (Normal); Ketone-Dipstick Negative (Negative); Leukocyte Esterase-Dipstick 100 /ul (Negative); Nitrite-Dipstick Negative (Negative); Occult Blood-Urine 50 /ul (Negative); Protein-Dipstick Negative (Negative); Urine Bilirubin Dipstick Negative (Negative); Urine Clarity Sl. Cloudy (Clear); Urine Urobilinogen Normal (Normal)
[2017-08-16 17:35] LABS: Bacteria 2+ /hpf (None Seen); Red Blood Cells-Urine 0-5 SEEN /hpf (0-5); Squamous Epithelial Cells - UA 0-5 SEEN /hpf (5-10); White Blood Cells 0-5 SEEN /hpf (0-5)
--- NOTE | 2017-08-16 18:05 | CT_ITS ---
STUDY: CT ABDOMEN AND PELVIS WITHOUT CONTRAST REASON FOR EXAM: Female, 52 years old. Difficulty urinating with urgency RADIATION DOSAGE (If Supplied By Facility): CTDIvol = ( 14.23 ) mGy, DLP = ( 651.75 ) mGycm TECHNIQUE: Transaxial images were obtained from the dome of the diaphragm to the symphysis pubis without oral contrast, and without intravenous contrast. Sagittal and coronal images were reconstructed. Individualized dose optimization techniques were used for this CT. COMPARISON: None. FINDINGS: Minor scarring or atelectasis at left base. The visualized portions of the heart are within normal limits. Liver is normal size. There is tiny granulomatous calcification. There is no mass or bile duct dilatation.. Small calcified stone within the gallbladder.. Normal spleen. Normal pancreas. Normal bilateral adrenal glands. Normal right kidney. Tiny nonobstructing left renal calculus.. No evidence for hydronephrosis or ureteral calculus. Normal visualized stomach. Normal small intestine. Mild diverticular disease in the sigmoid colon without evidence for acute diverticulitis.. The appendix is visualized and appears normal. Normal abdominal aorta. Normal inferior vena cava. Normal retroperitoneum. Mild nonspecific distention of the bladder. Normal abdominal wall. Lumbar spine demonstrates minor spondylosis. CT/Abdomen/Pelvis without Cont IMPRESSION: Left nephrolithiasis without evidence for hydronephrosis or ureteral calculus. Nonspecific distention of the bladder. Cholelithiasis without evidence for acute cholecystitis. Electronically Signed: Edgardo Crump MD at 18:45 EDT , Service support ,
--- NOTE | 2017-08-16 18:15 | ED.VISSUMM ---
- ER Visit Summary Date of Service: 08/16/17 Chief Complaint: Left flank pain History of Present Illness: The patient is a 52 F presenting with intermittent left flank pain. She states she has a sensation that she cannot empty her bladder. She has urinary urgency. She denies dysuria, frequency or hematuria. She states she has had kidney stones in the past and her symptoms began this way. She denies fever. No other complaints. Physical Examination: Vitals are stable. Patient is afebrile. Alert no acute distress. HEENT exam is unremarkable. Neck is supple. Lungs are clear and equal bilaterally. Heart is regular rate and rhythm. Abdomen is soft nontender nondistended. No guarding or rebound Back: No CVA tenderness Extremities are unremarkable. Skin is warm and dry. No focal neurologic deficit. Remainder of exam is unremarkable. Emergency Department Course and Treatment: Urinalysis shows 0-5 white blood cells, 0-5 red blood cells. CBC shows a white count 11.6. Chemistries unremarkable other than creatinine 1.07. CT flank shows left nephrolithiasis without evidence for hydronephrosis or ureteral calculus. Nonspecific distention of the bladder. Cholelithiasis without evidence for acute cholecystitis. On repeat evaluation, patient is resting comfortably. She states she is able to urinate. She is unable to see Dr. Key due to her insurance. She is advised to follow up with her primary care physician. Advised signs and symptoms for which to return to the emergency department. She understands and will return if she worsens. Disposition: Discharge home Impression: Left flank pain This note was generated with [employer] dictation software. It may contain incorrect words, spelling, and punctuation that were not noted in review of the chart prior to signing ED Disposition - Plan for ED Patient: Chief Complaint: Complaint Referrals: Ivan Bello DO [Primary Care Provider] -
[2017-08-16 18:21] LABS: Absolute Lymphocyte Count 2.62 X10^3/ul (0.83-4.51); Absolute Neutrophil Count 8.2 X10^3/uL (2.0-7.7); Basophil# 0.01 X10^3/uL; Basophil% 0.1 % (0-1); Eosinophil# 0.18 X10^3/uL; Eosinophils% 1.6 % (0-5); Hematocrit 40.4 % (37-47); Hemoglobin 13.2 g/dl (12.0-15.0); Lymphocyte # 2.62 X10^3/ul (4.0); Lymphocyte % 22.6 % (19-41); Mean Corp Hgb Conc 32.7 g/gl (32-36); Mean Corpuscular Hgb 28.7 pg (27.0-32.0); Mean Corpuscular Volume 87.8 fL (81-99); Mean Platelet Vol. 10.6 fl (6.2-12.0); Monocyte# 0.55 X10^3/uL; Monocyte% 4.7 % (0-10); Neutrophil # 8.22 X10^3/uL (2.7-7.7); Neutrophil % 70.9 % (47-70); Platelet Count 309 K/mm3 (150-450); RBC Distribution Width CV 13.2 % (11.6-14.6); RBC Distribution Width SD 42.4 fl (35.1-43.9); White Blood Count 11.6 K/mm3 (4.4-11.0)
[2017-08-16 18:22] LABS: POSITIVE COUNT NO; POSITIVE DIFFERENTIAL NO; POSITIVE MORPHOLOGY NO
[2017-08-16 18:32] LABS: Anion Gap 8 (5-15); BUN 14 mg/dL (7-18); BUN/Creat Ratio 13.1 RATIO (10-20); Calcium,Total 9.2 mg/dL (8.5-10.1); Chloride 103 mmol/L (98-107); Creatinine, Serum 1.07 mg/dL (0.55-1.02); EST Glomerular Filtration Rate 58 mL/min (>60); Est Glom Filt Rate - Afr Amer 70 mL/min (>60); Estimated Creatinine Clearance 49.75 ml/min; Glucose 100 mg/dL (74-106); Potassium 3.6 mmol/L (3.5-5.1); Sodium Level 139 mmol/L (136-145)
[2017-08-16 19:01] VITALS: BP 143/89; PULSE 96; RESP 16; O2SAT 98
--- NOTE | 2017-08-16 19:10 | ED.DEP ---
ED Disposition - Plan for ED Patient: Chief Complaint: Complaint Instructions: ED Flank Pain Uncertain Cause Referrals: Ivan Bello DO [Primary Care Provider] -
== END 2017-08-16 19:15 | disposition home or self-care (01) ==
LOC: ED 18:04
PROVIDERS: Emergency Provider Emergency Medicine; Family Provider Student in an Organized Health Care Education/Training Program; PCP Student in an Organized Health Care Education/Training Program
DX: R10.9 Unspecified abdominal pain (principal); R39.15 Urgency of urination; Z87.442 Personal history of urinary calculi; E11.9 Type 2 diabetes mellitus without complications; F32.9 Major depressive disorder, single episode, unspecified; F41.9 Anxiety disorder, unspecified
CPT/HCPCS: 74176; 80048; 81001; 85025; 99283; A4216

== ENCOUNTER 2017-08-20 05:13 | Emergency (ER) | payer MEDICAID, SELFPAY ==
[2017-08-20 05:14] VITALS: BP 178/79; PULSE 99; RESP 18; TEMP 36.9; O2SAT 98; BMI 31.6
--- NOTE | 2017-08-20 05:53 | ED.VISSUMM ---
- ER Visit Summary Date of Service: 08/20/17 Chief Complaint: left flank pain History of Present Illness: The patient is a 52 F with history of kidney stones who presents for left-sided flank pain. Patient was seen 3 days ago for urinary complaints and concern for a kidney stone. She returns today saying that she still having urinary symptoms and now is having left flank and lower abdominal pain. She states pain started today and is continuous. No nausea or vomiting. No diarrhea. She is having urinary frequency. History of diabetes and prior history of kidney stones. Physical Examination: Vital signs: afebrile, hemodynamically stable, no hypoxia on room air General: well nourished, well developed, in no distress Skin: warm, dry, no rash, no pallor HEENT: normocephalic and atraumatic; PERRL, EOMI, moist mucous membranes Cardiovascular: regular rate and rhythm without murmurs, no peripheral edema, 2+ pulses all distal extremities Respiratory: No increased work of breathing, lungs are clear to auscultation bilaterally, no rales, rhonchi or wheezing Abdominal: Abdomen is soft, nontender with normoactive bowel sounds, no guarding or rebound, no masses MSK: Moves all extremities, no deformities, normal strength Neuro: Awake and alert, oriented ?4. No facial droop, sensation and motor function intact and symmetric Test Results: Abnormal Lab Results 08/20/17 08/20/17 08/20/17 05:30 05:30 06:30 WBC 13.3 H RBC 4.54 Hgb 13.2 Hct 39.4 MCV 86.8 MCH 29.1 MCHC 33.5 RDW 13.0 RDW Differential 40.3 Plt Count 314 MPV 10.7 Immature Gran % (Auto) 0.200 Neut % (Auto) 76.8 H Lymph % (Auto) 15.2 L [place] % (Auto) 6.5 Eos % (Auto) 1.1 Baso % (Auto) 0.2 Absolute Neuts (auto) 10.2 H Absolute Lymphs (auto) 2.02 Total Counted Not Reportable Sodium Potassium Chloride Carbon Dioxide Anion Gap BUN Creatinine Estim Creat Clear Calc Est GFR (MDRD) Af Amer Est GFR (MDRD) Non-Af BUN/Creatinine Ratio Glucose Calcium Urine Color Yellow Urine Clarity Clear Urine pH 6.0 Ur Specific [place] 1.015 Urine Protein 15 H Urine Glucose (UA) 1000 H Urine Ketones Negative Urine Occult Blood 250 H Urine Nitrite Negative Urine Bilirubin Negative Urine Urobilinogen Normal Ur Leukocyte Esterase 100 H Urine RBC 5-10 SEEN Urine WBC 0 SEEN Ur Squamous Epith Cells 0-5 SEEN Urine Bacteria 0 SEEN Urine Mucus 0 SEEN Urine Test Negative 08/20/17 06:43 WBC RBC Hgb Hct MCV MCH MCHC RDW RDW Differential Plt Count MPV Immature Gran % (Auto) Neut % (Auto) Lymph % (Auto) [place] % (Auto) Eos % (Auto) Baso % (Auto) Absolute Neuts (auto) Absolute Lymphs (auto) Total Counted Sodium 136 Potassium 4.5 Chloride 102 Carbon Dioxide 25.0 Anion Gap 9 BUN 16 Creatinine 1.27 H Estim Creat Clear Calc 41.91 Est GFR (MDRD) Af Amer 57 L Est GFR (MDRD) Non-Af 47 L BUN/Creatinine Ratio 12.6 Glucose 269 H Calcium 9.0 Urine Color Urine Clarity Urine pH Ur Specific [place] Urine Protein Urine Glucose (UA) Urine Ketones Urine Occult Blood Urine Nitrite Urine Bilirubin Urine Urobilinogen Ur Leukocyte Esterase Urine RBC Urine WBC Ur Squamous Epith Cells Urine Bacteria Urine Mucus Urine Test Clinical Impression(s) from Imaging Studies Abdomen/Pelvis CT 08/20/17 07:08 IMPRESSION: 1. Mild left-sided hydronephrosis and hydroureter secondary to distal ureteral calculus. 2. Nonobstructing left-sided renal calculus. 3. Cholelithiasis. Electronically Signed: Maisha Lopez MD at 8:29 EDT , Service support , Emergency Department Course and Treatment: Review of patient's chart shows that there was nephrolithiasis without any ureteral stone or hydronephrosis on her CT scan on Wednesday. Patient was given Toradol and Zofran for her symptoms today. UA showed mild UTI and CBC showed mild leukocytosis. Given the new urinary findings and pt's change in sx, CT flank was repeated to eval for obstructive ureteral stone. Pt's left kidney stone was now in the distal ureter with mild hydronephrosis. Patient was given cipro for UTI and rx for naproxen and percocet for pain. Expect this small stone will pass without complication. Pt given urine strainer and dc home. Treatment Plan: [] Disposition: [] Impression: left ureteral colic This note was generated with [employer] dictation software. It may contain incorrect words, spelling, and punctuation that were not noted in review of the chart prior to signing ED Disposition - Plan for ED Patient: Disposition: Home or Assisted Living Chief Complaint: Flank Pain Instructions: ED Stone Renal W Colic Prescriptions: Hydrocodone Bitart/Apap 5-325 [[place] 5MG-325MG] 1 tab PO Q6H PRN PRN 3 Days #10 tab PRN Reason: Pain Naproxen [Naprosyn] 500 mg PO BID PRN #20 tablet Ciprofloxacin [Cipro] 500 mg PO BID #14 tablet Referrals: Ivan Bello DO [Primary Care Provider] - As soon as possible
[2017-08-20 06:26] LABS: Bacteria 0 SEEN /hpf (None Seen); Mucous, Urine 0 SEEN /hpf (<or=2+); White Blood Cells 0 SEEN /hpf (0-5)
[2017-08-20] MEDS: Ondansetron 4 MG/2 ML Vial IV (06:28)
[2017-08-20] MEDS: Ketorolac 30 MG/ML Syringe IV (06:28)
[2017-08-20 06:36] LABS: Color, Urine Yellow (Yellow); Glucose, Dipstick 1000 mg/dl (Normal); Ketone-Dipstick Negative (Negative); Leukocyte Esterase-Dipstick 100 /ul (Negative); Nitrite-Dipstick Negative (Negative); Occult Blood-Urine 250 /ul (Negative); Protein-Dipstick 15 mg/dl (Negative); Specific Gravity, Urine 1.015 (1.002-1.030); Urine Bilirubin Dipstick Negative (Negative); Urine Clarity Clear (Clear); Urine Urobilinogen Normal (Normal)
[2017-08-20 06:42] LABS: Absolute Lymphocyte Count 2.02 X10^3/ul (0.83-4.51); Absolute Neutrophil Count 10.2 X10^3/uL (2.0-7.7); Basophil# 0.03 X10^3/uL; Basophil% 0.2 % (0-1); Eosinophil# 0.14 X10^3/uL; Eosinophils% 1.1 % (0-5); Hematocrit 39.4 % (37-47); Hemoglobin 13.2 g/dl (12.0-15.0); Lymphocyte # 2.02 X10^3/ul (4.0); Lymphocyte % 15.2 % (19-41); Mean Corp Hgb Conc 33.5 g/gl (32-36); Mean Corpuscular Hgb 29.1 pg (27.0-32.0); Mean Corpuscular Volume 86.8 fL (81-99); Mean Platelet Vol. 10.7 fl (6.2-12.0); Monocyte# 0.86 X10^3/uL; Monocyte% 6.5 % (0-10); Neutrophil # 10.23 X10^3/uL (2.7-7.7); Neutrophil % 76.8 % (47-70); Platelet Count 314 K/mm3 (150-450); RBC Distribution Width SD 40.3 fl (35.1-43.9); Red Blood Count 4.54 M/mm3 (4.2-5.4); White Blood Count 13.3 K/mm3 (4.4-11.0)
[2017-08-20 06:43] LABS: POSITIVE COUNT NO; POSITIVE DIFFERENTIAL NO; POSITIVE MORPHOLOGY NO
[2017-08-20 06:48] LABS: Red Blood Cells-Urine 5-10 SEEN /hpf (0-5); Squamous Epithelial Cells - UA 0-5 SEEN /hpf (5-10)
[2017-08-20 07:01] LABS: Internal QC Validated? YES +Cl - CLEAR BKGD; Pregnancy, Urine Negative Negative
--- NOTE | 2017-08-20 07:08 | CT_ITS ---
STUDY: CT ABDOMEN AND PELVIS WITHOUT CONTRAST REASON FOR EXAM: Female, 52 years old. Left-sided flank pain. RADIATION DOSAGE (If Supplied By Facility): CTDIvol = ( 12.53 ) mGy, DLP = ( 629.32 ) mGycm TECHNIQUE: Transaxial images were obtained from the dome of the diaphragm to the symphysis pubis without oral contrast, and without intravenous contrast. Sagittal and coronal images were reconstructed. Individualized dose optimization techniques were used for this CT. COMPARISON: CT of the abdomen and pelvis dated August 16, 2017. FINDINGS: The visualized lung bases are unremarkable. The visualized portions of the heart are within normal limits. There is hepatomegaly with diffuse hepatic enlargement. Maximum cephalocaudal dimension of the liver is 18.4 cm. There are multiple gallstones. Normal spleen. Normal pancreas. Normal bilateral adrenal glands. Normal right kidney. There is mild left-sided hydronephrosis and hydroureter secondary to distal ureteral calculus measuring 7.7 mm in greatest dimension. There is moderate left-sided perinephric stranding. There is a nonobstructing left-sided renal calculus measuring approximately 3 mm in size. Normal visualized stomach. There is no evidence for dilated bowel, ascites or pneumoperitoneum. Small bowel has a grossly normal appearance. Stool is visible throughout the colon with scattered colonic diverticula. There is non-visualization of the appendix. Normal abdominal aorta. Normal inferior vena cava. Normal retroperitoneum. Normal urinary bladder. Normal visualized uterus. There is a small umbilical hernia containing fat. Normal osseous structures. CT/Abdomen/Pelvis without Cont IMPRESSION: 1. Mild left-sided hydronephrosis and hydroureter secondary to distal ureteral calculus. 2. Nonobstructing left-sided renal calculus. 3. Cholelithiasis. Electronically Signed: Maisha Lopez MD at 8:29 EDT , Service support ,
[2017-08-20 07:10] LABS: Anion Gap 9 (5-15); BUN 16 mg/dL (7-18); BUN/Creat Ratio 12.6 RATIO (10-20); Chloride 102 mmol/L (98-107); Creatinine, Serum 1.27 mg/dL (0.55-1.02); EST Glomerular Filtration Rate 47 mL/min (>60); Est Glom Filt Rate - Afr Amer 57 mL/min (>60); Estimated Creatinine Clearance 41.91 ml/min; Glucose 269 mg/dL (74-106); Potassium 4.5 mmol/L (3.5-5.1); Sodium Level 136 mmol/L (136-145)
--- NOTE | 2017-08-20 08:46 | ED.DEP ---
ED Disposition - Plan for ED Patient: Chief Complaint: Flank Pain Instructions: ED Stone Renal W Colic Referrals: Ivan Bello DO [Primary Care Provider] - As soon as possible
--- NOTE | 2017-08-20 08:48 | ED.DEP ---
ED Disposition - Plan for ED Patient: Chief Complaint: Flank Pain Instructions: ED Stone Renal W Colic Prescriptions: Naproxen [Naprosyn] 500 mg PO BID PRN #20 tablet Ciprofloxacin [Cipro] 500 mg PO BID #14 tablet Referrals: Ivan Bello DO [Primary Care Provider] - As soon as possible
[2017-08-20 09:03] VITALS: BP 142/82; PULSE 94; RESP 14; O2SAT 100
== END 2017-08-20 09:04 | disposition home or self-care (01) ==
PROVIDERS: Emergency Provider Emergency Medicine; Family Provider Student in an Organized Health Care Education/Training Program; PCP Student in an Organized Health Care Education/Training Program
DX: N13.2 Hydronephrosis with renal and ureteral calculous obstruction (principal); Z87.442 Personal history of urinary calculi; E11.9 Type 2 diabetes mellitus without complications
CPT/HCPCS: 74176; 80048; 81001; 81025; 85025; 99284; A4216; J2405

== ENCOUNTER 2017-09-15 14:50 | Observation (INO) | payer MEDICAID, SELFPAY ==
[2017-09-15] VITALS (8 sets, daily range): BP systolic 124–156; BP diastolic 65–86; PULSE 91–119; RESP 16–23; TEMP 36.8–37; O2SAT 95–98; BMI 31.8; BMI 31.1
--- NOTE | 2017-09-15 15:27 | EKG12_ITS ---
Test Reason : SEIZURE Blood Pressure : / mmHG Vent. Rate : 113 BPM Atrial Rate : 113 BPM P-R Int : 204 ms QRS Dur : 066 ms QT Int : 294 ms P-R-T Axes : 028 020 047 degrees QTc Int : 403 ms Sinus tachycardia Septal infarct , age undetermined , cannot be excluded Nonspecific T wave abnormality Abnormal ECG Confirmed by IVANA BARON, SABRINA ([id number]), editor & co founder NIDIA MOYER ([id number] on 09/20/2017 1:44:14 PM Referred By: TONI Confirmed By:SABRINA HEATH MD
--- NOTE | 2017-09-15 15:33 | ED.DCSUM_ITS ---
History of Present Illness Chief Complaint: Seizure Informant: Patient, Family, [employer] Consultant Onset: Today - JPTA Context: Sudden Onset - while sitting in office at work Timing: Intermittent - x1 episode, Lasts - 2 min per EMS Quality: unk -- shaking poss seizure per EMS Location: all over Current Severity: gone Maximum Severity: Severe Worsened by: unk Relieved by: unk Associated Symptoms: mild headache, nausea, feels malaised. no aura. pt amnestic to event. Narrative: Patient does not know what happened, she does remember sitting in the chair in her office at work. 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 She had no prodromal symptoms at all. She has had no recent illnesses. She woke up in the ambulance, feeling disoriented but she feels better now. No history of any drug use, she does not smoke, takes her medicines as prescribed. She did not feel hypoglycemic before this, she is a diabetic. Blood sugar was 137 per EMS. Per EMS, some coworkers did witness her on the floor shaking her entire body and unresponsive. - Past Medical History (1) HTN (hypertension) Status: Chronic (2) DM type 2 (diabetes mellitus, type 2) Status: Chronic (3) Hyperlipidemia Status: Chronic (4) Hypothyroid Status: Chronic (5) Bilateral kidney stones Status: Chronic Past Medical History - Allergies and Home Meds Allergies/Adverse Reactions: Allergies metformin Adverse Reaction (Verified 09/15/17 14:56) Upset Stomach Surgical History: no surgical history Smoking Status: Former smoker Alcohol: None Drugs: None Review of Systems All systems negative except as indicated General: Reports: Malaise Gastrointestinal: Reports: Nausea Musculoskeletal: Denies: Myalgias, Neck pain, Back pain, Extremity Pain Neurological: Reports: Headache Physical Exam Vital Signs/Narrative: Vital Signs Temp Pulse Resp BP Pulse Ox 09/15/17 14:51 98.2 F 119 H 17 156/74 H 95 Inital Vital Signs reviewed: Yes General: Well nourished, Well developed Head: Normocephalic, Atraumatic, - - no Amaro sign. no HT or csf otorhinorrhea. Eyes: Perrl, EOMI ENT: Moist mucous membranes, No rhinorrhea Neck: Supple, Nontender, - - FROM. no meningismus. Cardiovascular: Regular rate, Regular rhythm, No murmurs Respiratory: No distress, CTA bilaterally, Chest nontender Abdomen: Soft, Nontender, Nondistended, Normal bowel sounds Back: Nontender, Normal Inspection Extremities: Nontender, No edema Skin: Normal color, No rash. Negative for: Trauma Neurological: Alert, Oriented x3, Cranial nerves II-XII grossly intact, Normal Strength, Normal Sensation, - - GCS 15 Psychological: Normal affect Diagnostic/Tx/Re-eval Impressions Brain CT 09/15/17 15:50 IMPRESSION: Normal unenhanced CT scan of the brain. Electronically Signed: Jimmy Li MD at 16:11 EDT , Service support , 09/15/17 15:50 Brain/Head without Contrast [CT] Stat Laboratory Results 09/15/17 09/15/17 09/15/17 Range/Units 15:44 15:44 16:24 WBC 12.9 H (4.4-11.0) K/mm3 RBC 4.36 (4.2-5.4) M/mm3 Hgb 12.8 (12.0-15.0) g/dl Hct 38.2 (37-47) % MCV 87.6 (81-99) fL MCH 29.4 (27.0-32.0) pg MCHC 33.5 (32-36) g/gl RDW 13.0 (11.6-14.6) % RDW Differential 40.4 (35.1-43.9) fl Plt Count 294 (150-450) K/mm3 MPV 10.8 (6.2-12.0) fl Immature Gran % (Auto) 0.200 (0.0-0.9) % Neut % (Auto) 80.0 H (47-70) % Lymph % (Auto) 13.9 L (19-41) % [place] % (Auto) 4.3 (0-10) % Eos % (Auto) 1.4 (0-5) % Baso % (Auto) 0.2 (0-1) % Absolute Neuts (auto) 10.4 H (2.0-7.7) X10^3/uL Absolute Lymphs (auto) 1.80 (0.83-4.51) X10^3/ul Total Counted Not Reportable Sodium 133 L (136-145) mmol/L Potassium 3.9 (3.5-5.1) mmol/L Chloride 97 L (98-107) mmol/L Carbon Dioxide 25.0 (21.0-32.0) mmol/L Anion Gap 11 (5-15) BUN 16 (7-18) mg/dL Creatinine 1.34 H (0.55-1.02) mg/dL Estim Creat Clear Calc 39.72 ml/min Est GFR (MDRD) Af Amer 54 L (>60) mL/min Est GFR (MDRD) Non-Af 45 L (>60) mL/min BUN/Creatinine Ratio 11.9 (10-20) RATIO Glucose 222 H (74-106) mg/dL Calcium 9.2 (8.5-10.1) mg/dL Troponin I < 0.015 (<0.045) ng/mL Urine Color Yellow (Yellow) Urine Clarity Clear (Clear) Urine pH 5.0 (5.0 - 8.0) Ur Specific [place] 1.020 (1.002-1.030) Urine Protein 15 H (Negative) mg/dl Urine Glucose (UA) 1000 H (Normal) mg/dl Urine Ketones 15 H (Negative) mg/dl Urine Occult Blood Negative (Negative) /ul Urine Nitrite Negative (Negative) Urine Bilirubin Negative (Negative) mg/dL Urine Urobilinogen Normal (Normal) mg/dl Ur Leukocyte Esterase 100 H (Negative) /ul Urine RBC 0 SEEN (0-5) /hpf Urine WBC 0-5 SEEN (0-5) /hpf Ur Squamous Epith Cells 0-5 SEEN (5-10) /hpf Urine Bacteria RARE (None Seen) /hpf Urine Mucus 0 SEEN (<or=2+) /hpf - Rhythm Strip Rhythm Strip: Sinus Tach Rate: 110 Ectopy: None - Medical Decision Making CT head shows no acute abnormalities and labs are unremarkable. She does have a little bit of renal insufficiency, but that would not be responsible for her seizure. Her initial blood sugar was 137, here it is 222. It does not sound like hypoglycemia because this, she would be more likely to have had some prodromal symptoms. A dysrhythmia is in the differential diagnosis as well, and interrupting blood flow to the brain causing seizure, but it would have had to be sudden, causing loss of consciousness. She had no prodromal symptoms of that, however she has remained tachycardic since she has been here, improved with observation. She has been stable and without another seizure. My concern is that we have no explanation for this, she is not an alcohol user and is not in withdrawal, she does not use drugs, I discussed with Dr. Bills with neurology, he agrees with admitting her for further workup and asked that we add a drug screen onto the urine in the lab. Discussed with hospitalist. Neurologist recommended avoiding antiepileptics for now, unless she has a second seizure, in addition to obtaining EEG and MRI as part of her inpatient workup. ED Disposition - Plan for ED Patient: Disposition: Acute Care Hospital [facility] Chief Complaint: Seizure Diagnosis: Seizure, Acute renal insufficiency, Tachycardia
--- NOTE | 2017-09-15 15:50 | CT_ITS ---
STUDY: CT BRAIN WITHOUT CONTRAST REASON FOR EXAM: Female, 52 years old. Seizure, headache, hypertension RADIATION DOSAGE (If Supplied By Facility): CTDIvol = ( 44.99 ) mGy, DLP = ( 762.36 ) mGycm TECHNIQUE: Transaxial CT imaging of the brain was performed without administration of intravenous contrast material. Individualized dose optimization techniques were used for this CT. COMPARISON: None. FINDINGS: Normal soft tissue structures. Normal calvarium. Normal size ventricles and extra-axial spaces for the patient's age. Normal white matter tracts of the cerebral hemispheres. Normal basal ganglia and thalami. Normal brainstem. Normal cerebellum. There is no intracranial hemorrhage. There are no findings of an acute ischemic infarction. Normal visualized paranasal sinuses. CT/Brain/Head without Contrast IMPRESSION: Normal unenhanced CT scan of the brain. Electronically Signed: Jimmy Li MD at 16:11 EDT , Service support ,
[2017-09-15 15:54] LABS: Absolute Neutrophil Count 10.4 X10^3/uL (2.0-7.7); Basophil# 0.02 X10^3/uL; Basophil% 0.2 % (0-1); Eosinophil# 0.18 X10^3/uL; Eosinophils% 1.4 % (0-5); Hematocrit 38.2 % (37-47); Hemoglobin 12.8 g/dl (12.0-15.0); Lymphocyte % 13.9 % (19-41); Mean Corp Hgb Conc 33.5 g/gl (32-36); Mean Corpuscular Hgb 29.4 pg (27.0-32.0); Mean Corpuscular Volume 87.6 fL (81-99); Mean Platelet Vol. 10.8 fl (6.2-12.0); Monocyte# 0.56 X10^3/uL; Monocyte% 4.3 % (0-10); Neutrophil # 10.35 X10^3/uL (2.7-7.7); Platelet Count 294 K/mm3 (150-450); RBC Distribution Width SD 40.4 fl (35.1-43.9); Red Blood Count 4.36 M/mm3 (4.2-5.4); White Blood Count 12.9 K/mm3 (4.4-11.0)
[2017-09-15 15:58] LABS: POSITIVE COUNT NO; POSITIVE DIFFERENTIAL NO; POSITIVE MORPHOLOGY NO
[2017-09-15 16:14] LABS: Anion Gap 11 (5-15); BUN 16 mg/dL (7-18); BUN/Creat Ratio 11.9 RATIO (10-20); Calcium,Total 9.2 mg/dL (8.5-10.1); Chloride 97 mmol/L (98-107); Creatinine, Serum 1.34 mg/dL (0.55-1.02); EST Glomerular Filtration Rate 45 mL/min (>60); Est Glom Filt Rate - Afr Amer 54 mL/min (>60); Estimated Creatinine Clearance 39.72 ml/min; Glucose 222 mg/dL (74-106); Potassium 3.9 mmol/L (3.5-5.1); Sodium Level 133 mmol/L (136-145)
[2017-09-15 16:28] LABS: Mucous, Urine 0 SEEN /hpf (<or=2+); Red Blood Cells-Urine 0 SEEN /hpf (0-5)
[2017-09-15 16:49] LABS: Color, Urine Yellow (Yellow); Glucose, Dipstick 1000 mg/dl (Normal); Ketone-Dipstick 15 mg/dl (Negative); Leukocyte Esterase-Dipstick 100 /ul (Negative); Nitrite-Dipstick Negative (Negative); Occult Blood-Urine Negative /ul (Negative); Protein-Dipstick 15 mg/dl (Negative); Urine Bilirubin Dipstick Negative (Negative); Urine Clarity Clear (Clear); Urine Urobilinogen Normal (Normal)
[2017-09-15 17:14] LABS: Bacteria RARE /hpf (None Seen); Squamous Epithelial Cells - UA 0-5 SEEN /hpf (5-10); White Blood Cells 0-5 SEEN /hpf (0-5)
--- NOTE | 2017-09-15 18:39 | MRI_ITS ---
STUDY: MRI BRAIN WITHOUT CONTRAST REASON FOR EXAM: Female, 52 years old. Seizures TECHNIQUE: Standardized multiplanar fat and water weighted pulse sequences were obtained. COMPARISON: CT of the brain September 15, 2017 FINDINGS: Normal size of the ventricles and extra-axial spaces for the patient's age. There are a couple of tiny nonspecific punctate white matter lesions without mass effect or restricted diffusion of uncertain etiology or clinical significance Normal bilateral basal ganglia. Normal thalami. There is no extra-axial fluid accumulation. Normal flow voids within the major intracranial circulation suggesting patency by spin echo criteria. Normal sella turcica, pituitary gland, infundibular stalk, optic chiasm and hypothalamus. Normal tectal plate and pineal gland. Normal midbrain, ruy and medulla. Normal cerebellum. Normal basal cisterns. Normal bilateral temporal bones. Normal bilateral internal auditory canals. No demonstrated orbital abnormality, within the constraints of a routine brain study. Normal visualized paranasal sinuses. Normal calvarium and skull base. Normal visualized soft tissue structures. Normal visualized upper cervical spine. MRI/Brain without Contrast IMPRESSION: Minimal nonspecific white matter changes of uncertain etiology or clinical significance... No evidence for acute infarct Electronically Signed: Edgardo Crump MD at 20:41 EDT , Service support ,
--- NOTE | 2017-09-15 18:45 | NURSING ---
Informed ED charge nurse it is ok to sent patient
--- NOTE | 2017-09-15 18:52 | HP.PCM_ITS ---
Problem List (1) Seizure Status: Acute History of Present Illness Date of Admission: 09/15/17 Chief Complaint: seizure 52 year old female with h/o depression. While at work had a generalized tonic clonic seizure which lasted about a minute but which was followed by about a 5- 10 minute post ictal state/period. She denies any similar episodes in the past. Denies any headaches, vertigo, ataxia, weakness or numbness of any extremity. Denies any h/o trauma. Denies any family h/o seizures. At this time concerned about not being allowed to drive Past Medical History Past Medical History (Chronic Problems): Chronic Problems Bilateral kidney stones (Chronic) HTN (hypertension) (Chronic) DM type 2 (diabetes mellitus, type 2) (Chronic) Hyperlipidemia (Chronic) Hypothyroid (Chronic) Allergies metformin Adverse Reaction (Verified 09/15/17 14:56) Upset Stomach Home Medications: Ambulatory Orders Medication Instructions Recorded Citalopram [Celexa] 40 mg PO DAILY 04/19/16 Lisinopril [Zestril] 5 mg PO DAILY 04/19/16 Levothyroxine [Synthroid] 100 mcg PO MOTUWETHFRSA 03/12/17 glyBURIDE [Micronase] 10 mg PO DAILY 03/12/17 Amitriptyline HCl [Elavil] 100 mg PO QHS PRN 08/16/17 Alogliptin Benzoate [Alogliptin] 12.5 mg PO DAILY 09/15/17 Cranberry 400 mg PO QHS 09/15/17 Cyclobenzaprine HCl 10 mg PO BID PRN 09/15/17 [Cyclobenzaprine HCl] Sertraline HCl [Zoloft] 50 mg PO DAILY 09/15/17 Simvastatin [Zocor] 40 mg PO QHS 09/15/17 Valacyclovir HCl [Valacyclovir] 500 mg PO DAILY 09/15/17 buPROPion XL [Wellbutrin Xl] 300 mg PO DAILY 09/15/17 Surgical History: no surgical history Lives: With Family - Smoking Status: Former smoker Alcohol: None Drugs: None Review of Systems Constitutional: Reports: Weakness Eyes: Denies: Blurred vision HEENT: Denies: Head Aches, Sinus Congestion, Sinus Drainage Cardiovascular: Denies: Chest Pain, Palpitations Respiratory: Denies: Cough, Shortness of breath at rest, Sputum production Gastrointestinal: Denies: Abdominal Pain, Nausea, Vomiting Genitourinary: Denies: Dysuria Musculoskeletal: Denies: Joint Pain, Joint Tenderness Skin: Denies: Rash, Wounds Neurological: Denies: Double vision, Focal weakness, Numbness, Tingling Psychiatric: Reports: Depression. Denies: Homicidal Ideations, Suicidal Ideations Hematologic/ Lymphatic: Denies: Easy Bruising, Easy Bleeding VTE Information - Inpt Only VTE Present on Admission: No Patient Problems: Active and Suspected Problems Seizure (Acute) Tachycardia (Acute) Seizure (Acute) Acute renal insufficiency (Acute) - Physical Exam General: Alert, Oriented x3, Cooperative, No apparent distress, Well developed HEENT: Atraumatic, Normocephalic Oral: Moist Mucosa Neck: Supple, No JVD Lungs: Clear to auscultation, Normal air movement Cardiovascular: Regular rate, No murmurs Abdomen: Bowel Sounds Present, Soft, Non Tender Extremities: No edema, Capillary Refill Less than 3 Seconds Skin: No rashes, No breakdown Musculoskeletal: No Tenderness to Palpation of Joints or Extremities Neurological: Cranial nerves II-XII grossly intact, Deep Tendon Reflexes 2+/4 and Symmetrical - brisk reflexes in the left upper and lower extremity, Motor Exam 5/5 strength throughout Vital Signs Temp Pulse Resp BP Pulse Ox 98.2 F 107 H 23 H 146/86 H 98 09/15/17 14:51 09/15/17 17:00 09/15/17 17:00 09/15/17 17:00 09/15/17 17:00 Assessment/Plan All Active Problems Seizure (Acute) Tachycardia (Acute) Seizure (Acute) Nausea & vomiting (Acute) Renal colic, bilateral (Acute) Acute renal insufficiency (Acute) Bilateral kidney stones (Acute) 1. New onset seizure. Subtle focality on neuro exam with exaggerated DTR on the left. Will need brain MRI and EEG and consult neurology 2. DM2. Will continue OHA while in the hospital and monitor 3. Depression. Clinically stable at this time and will continue antidepressants 4. HTN. Well controlled. Will continue antihypertensives 5. Morbid obesity Code Visit Inpatient E&M: 55157 Init Hosp L3
[2017-09-15 19:44] LABS: Amphetamine Urine VISTA NEGATIVE (<1000 ng/mL); Barbiturate Urine VISTA NEGATIVE (< 200 ng/mL); Benzodiazepine Urine VISTA NEGATIVE (< 200 ng/mL); Cocaine Urine VISTA NEGATIVE (< 300 ng/mL); Ecstacy Urine VISTA POSITIVE (< 500 ng/mL); Methadone Urine VISTA NEGATIVE (< 300 ng/mL); PCP Urine VISTA NEGATIVE (< 25 ng/mL); THC Urine VISTA NEGATIVE (< 50 ng/mL); Vista UDS pH Range 6
[2017-09-15] MEDS: Acetaminophen 325 MG Tablet 650 MG PO (21:28)
[2017-09-15] MEDS: 0.9% NaCl Peripheral Flush Adult/Peds IV (21:30)
[2017-09-15] MEDS: Atorvastatin Calcium 20 MG Tablet PO (21:30)
[2017-09-15 22:11] LABS: Bedside Glucose 98 mg/dL (70-110)
[2017-09-15] MEDS: Senna/Docusate Sodium 1 Tablet 2 TABLET PO (23:08)
[2017-09-15] MEDS: Mag Hydrox/Al Hydrox/Simeth 30 ML UDC PO (23:08)
[2017-09-15] MEDS: Acyclovir 200 MG Capsule PO (23:08)
[2017-09-15] MEDS: BENZOCAINE/MENTHOL 1 LOZENGE 2 LOZENGE MUCOUS MEM (23:09)
[2017-09-16 03:00] VITALS: PULSE 84
[2017-09-16 03:15] VITALS: BP 118/68; PULSE 88; RESP 18; TEMP 36.7; O2SAT 97
[2017-09-16 03:20] VITALS: O2SAT 97
[2017-09-16] MEDS: Acetaminophen 325 MG Tablet 650 MG PO ×2 (03:56→09:56)
--- NOTE | 2017-09-16 05:54 | NURSING ---
All charting completed by student nurse Holger Ramirez reviewed by this RN. This RN completed charting with student nurse and agrees with charting.
[2017-09-16] MEDS: Levothyroxine 100 MCG Tablet PO (06:48)
[2017-09-16 06:51] LABS: Bedside Glucose 156 mg/dL (70-110)
[2017-09-16 06:55] VITALS: PULSE 90
[2017-09-16 09:15] VITALS: BP 125/78; PULSE 101; RESP 16; TEMP 37.1; O2SAT 97
[2017-09-16] MEDS: Senna/Docusate Sodium 1 Tablet 2 TABLET PO (09:48)
[2017-09-16] MEDS: Magnesium Hydroxide 30 ML UDC PO (09:48)
[2017-09-16] MEDS: Lisinopril 5 MG Tablet PO (09:49)
[2017-09-16] MEDS: Acyclovir 200 MG Capsule PO (09:49)
[2017-09-16] MEDS: Enoxaparin 40 MG/0.4 ML Syringe SC (09:49)
[2017-09-16] MEDS: Citalopram 20 MG Tablet PO (09:49)
[2017-09-16 11:20] LABS: Bedside Glucose 217 mg/dL (70-110)
[2017-09-16] MEDS: Insulin Lispro 100 UNIT/ML INSULN.PEN SC (12:15)
--- NOTE | 2017-09-16 12:20 | EEG ---
- Electroencephalogram Date of service 09/16/2017 History EEG is being done in this 52 yr F to rule out seizures EEG Description: This is an 18 channel EEG with 10-20 lead placement system. Bipolar montages, Referential and Circumferential montages were reviewed. Photic stimulation and Hyperventilation were performed. The posterior dominant rhythm is 10-11 HZ synchronous, symmetric, reacting to eye opening and closing. Photo stimulation elicited normal driving response but no abnormal photoparoxysmal response, Hyperventilation did not elicit any abnormal photoparoxysmal response. Sleep was identified. There is no abnormal background slowing noted. EKG artefact noted. There was no epileptiform discharges or electrographic seizures noted during this recording. EEG Interpretation This is a normal awake and asleep EEG. There is no epileptiform discharges or electrographic seizures noted during the record.
--- NOTE | 2017-09-16 12:52 | PCM.CONS.GEN ---
Problem List (1) Seizure Status: Acute Reason for Consult Date of Consultation: 09/16/17 Reason for Consultation: Seizure History of Present Illness: The patient is a 52 year old CF with PMH HTN, HLD, DM, hypothyroidism, H/O kidney stones, depression admitted with seizures like episode. History is obtained from patient and medical records. 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 Per patient she never had witnessed seizures or syncope in the past. Per patient she is under lot of stress at present. On admission labs WBC was 12.9, NA-133 (L), Cr-1.34 (H), UA showed 100 LE, UDS was +ve for MDMA, was not hypoglycemic, CT head and MRI brain w/o contrast reported nothing acute, EEG was normal. At present patient denies any RM, visual disturbances, focal motor weakness, sensory loss, fever, chest pain or rash. Patient on Wellbutrin at home. Past Medical History Past Medical History (Chronic Problems): Chronic Problems Bilateral kidney stones (Chronic) HTN (hypertension) (Chronic) DM type 2 (diabetes mellitus, type 2) (Chronic) Hyperlipidemia (Chronic) Hypothyroid (Chronic) Allergies metformin Adverse Reaction (Verified 09/15/17 14:56) Upset Stomach Home Medications: Ambulatory Orders Medication Instructions Recorded Citalopram [Celexa] 40 mg PO DAILY 04/19/16 Lisinopril [Zestril] 5 mg PO DAILY 04/19/16 Levothyroxine [Synthroid] 100 mcg PO MOTUWETHFRSA 03/12/17 glyBURIDE [Micronase] 10 mg PO DAILY 03/12/17 Amitriptyline HCl [Elavil] 100 mg PO QHS PRN 08/16/17 Alogliptin Benzoate [Alogliptin] 12.5 mg PO DAILY 09/15/17 Cranberry 400 mg PO QHS 09/15/17 Cyclobenzaprine HCl 10 mg PO BID PRN 09/15/17 [Cyclobenzaprine HCl] Sertraline HCl [Zoloft] 50 mg PO DAILY 09/15/17 Simvastatin [Zocor] 40 mg PO QHS 09/15/17 Valacyclovir HCl [Valacyclovir] 500 mg PO DAILY 09/15/17 buPROPion XL [Wellbutrin Xl] 300 mg PO DAILY 09/15/17 Surgical History: no surgical history Lives: With Family - Smoking Status: Former smoker Alcohol: None Drugs: None Review of Systems Constitutional: Reports: - - complete ROS negative except as documented in HPI Patient Problems: Active and Suspected Problems Seizure (Acute) Tachycardia (Acute) Seizure (Acute) Acute renal insufficiency (Acute) - Physical Exam General: Alert HEENT: Normocephalic Neck: Supple Lungs: Normal air movement Cardiovascular: Normal S1, Normal S2 Extremities: No cyanosis Skin: No rashes Musculoskeletal: No Tenderness to Palpation of Joints or Extremities Neurological: Cranial nerves II-XII grossly intact, Deep Tendon Reflexes 2+/4 and Symmetrical, Neuro grossly intact, Motor Exam 5/5 strength throughout, Muscle tone normal, Sensory exam intact to light touch and pain, Coordination normal Psych/Mental Status: Normal Affect Vital Signs Temp Pulse Resp BP Pulse Ox 98.7 F 101 H 16 125/78 H 97 09/16/17 09:15 09/16/17 09:15 09/16/17 09:15 09/16/17 09:15 09/16/17 09:15 Oxygen Delivery Method Room Air Weight: 77.2 kg Body Mass Index (BMI) 31.1 Intake and Output for Last 24 Hours 09/14/17 09/15/17 09/16/17 23:59 23:59 23:59 Intake Total 1560 / 1560 Balance 1560 / 1560 Laboratory Tests Past 24 Hrs 09/15/17 18:43 Urine Opiates Screen NEGATIVE Urine Methadone Screen NEGATIVE Ur Barbiturates Screen NEGATIVE Ur Phencyclidine Scrn NEGATIVE Ur Amphetamines Screen NEGATIVE U Methamphetamin-MDMA POSITIVE H U Benzodiazepines Scrn NEGATIVE Urine Cocaine Screen NEGATIVE U Cannabinoids Screen NEGATIVE Ur Drug Screen Comment POC Glucose 09/16/17 09/16/17 09/15/17 11:17 06:47 21:25 POC Glucose 217 H 156 H 98 Assessment/Plan All Active Problems Seizure (Acute) Tachycardia (Acute) Seizure (Acute) Nausea & vomiting (Acute) Renal colic, bilateral (Acute) Acute renal insufficiency (Acute) Bilateral kidney stones (Acute) The patient is a 52 year old CF with PMH HTN, HLD, DM, hypothyroidism, H/O kidney stones, depression admitted with seizures like episode. History is obtained from patient and medical records. 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 Per patient she never had witnessed seizures or syncope in the past. Per patient she is under lot of stress at present. On admission labs WBC was 12.9, NA-133 (L), Cr-1.34 (H), UA showed 100 LE, UDS was +ve for MDMA, was not hypoglycemic, CT head and MRI brain w/o contrast reported nothing acute, EEG was normal. At present patient denies any RM, visual disturbances, focal motor weakness, sensory loss, fever, chest pain or rash. Impression Seizure like episode Plan -Since patient had only 1 single episode of possible seizure with no clear documentation and patient not able to give accurate accounts of the event, will hold off AEDs at present. Patient also on Wellbutrin which could have provoked the episode. Recommend avoiding Wellbutrin and also avoid analgesics like Tramadol in future. -MRI brain, CT head reviewed- nothing acute -EEG reviewed- normal -Labs reviewed- UDS +ve for MDMA, patient denies taking any illicit drugs -Per patient she is under lot of stress currently due to her divorce -Patient counseled not to drive for 6 months -Seizure precautions-patient counseled not to climb at heights or ladders, avoid working with sharp objects, avoid swimming, should avoid taking bath in a bath tub and used shower instead, patient understands the same. -Fall precautions -GI/DVT prophylaxis -Follow up with Neurology as outpatient in 4-6 weeks -Please call with questions if any -Thank you for allowing us to participate in patient's care and management I spent 60 minutes taking history, doing physical examination, reviewing medical records, coordinating care and counseling the patient. Code Visit Inpatient E&M: 95839 Init Hosp L3
--- NOTE | 2017-09-16 14:09 | DCINST_ITS ---
- Discharge Diagnoses Current Active Problems: Current Active and Chronic Problems Seizure (Acute) Tachycardia (Acute) Seizure (Acute) Acute renal insufficiency (Acute) You will use the following diet at home:: Calorie/Carbohydrate Controlled ( specify 1200, 1400, etc) - 1800 Discharge Activity: May Not Drive - for 6 months Allergies/Adverse Reactions: Allergies metformin Adverse Reaction (Verified 09/15/17 14:56) Upset Stomach Medications to take at Discharge Citalopram [Celexa] 40 mg PO DAILY 04/19/16 Lisinopril [Zestril] 5 mg PO DAILY 04/19/16 Levothyroxine [Synthroid] 100 mcg PO MOTUWETHFRSA 03/12/17 glyBURIDE [Micronase] 10 mg PO DAILY 03/12/17 Amitriptyline HCl [Elavil] 100 mg PO QHS PRN 08/16/17 Alogliptin Benzoate [Alogliptin] 12.5 mg PO DAILY 09/15/17 Cranberry 400 mg PO QHS 09/15/17 Cyclobenzaprine HCl 10 mg PO BID PRN 09/15/17 Sertraline HCl [Zoloft] 50 mg PO DAILY 09/15/17 Simvastatin [Zocor] 40 mg PO QHS 09/15/17 Valacyclovir HCl [Valacyclovir] 500 mg PO DAILY 09/15/17 Primary Care Physician: Ivan Bello DO [Primary Care Provider] - Please follow up with your Primary Care Physician in: in 5-7 days Test Results: Test results from this visit will be discussed in further detail at your follow- up appointment, if applicable. Please Follow Up With: Manuela Bills MD When: in 3-4 weeks Proposed Discharge Date: 09/16/17
--- NOTE | 2017-09-16 14:10 | PCM.DC.SUM ---
Discharge Date and Diagnosis - Problem List Patient Problems: Active and Suspected Problems Seizure (Acute) Tachycardia (Acute) Seizure (Acute) Acute renal insufficiency (Acute) Date of Admission: 09/15/17 Date of Discharge: 09/16/17 - Primary Discharge Diagnosis Active and Suspected Problems Seizure (Acute) Tachycardia (Acute) Seizure (Acute) Acute renal insufficiency (Acute) - Secondary Discharge Diagnosis Chronic Problems Bilateral kidney stones (Chronic) HTN (hypertension) (Chronic) DM type 2 (diabetes mellitus, type 2) (Chronic) Hyperlipidemia (Chronic) Hypothyroid (Chronic) Hospital Course and Treatment Imaging Results: Clinical Impression(s) from Imaging Studies Brain CT 09/15/17 15:50 IMPRESSION: Normal unenhanced CT scan of the brain. Electronically Signed: Jimmy Li MD at 16:11 EDT , Service support , Brain MRI 09/15/17 18:39 IMPRESSION: Minimal nonspecific white matter changes of uncertain etiology or clinical significance... No evidence for acute infarct Electronically Signed: Edgardo Crump MD at 20:41 EDT , Service support , Operations: - - Cystoscopy and bilateral stent placement Summary of Care Provided: Patient is a 52-year-old lady admitted with a seizure episode 1. New onset seizure patient was placed on a monitored bed underwent subsequent evaluation with MRI which was negative for acute intracranial pathology. She also had an EEG performed which did not show any epileptiform discharges or electrographic seizures since this was last seizure neurology recommended no anti-epilepsy drugs. Patient was however instructed not to drive for 6 months, not to operate heavy machinery and to avoid deep sea diving and height 2. Diabetes mellitus type 2 did continue with patient home regimen 3. Depression clinically stable did continue with patient antidepressant except for Wellbutrin which we discontinued per recommendations from neurology 4. Hypertension-blood pressure controlled, home medications continued with dose adjustment as needed 5. Acute kidney injury managed with IV fluids 6. Obesity with BMI of 31.1 lifestyle modification including weight loss advised Discharge Diet: 1800 Calorie Control Diet Discharge Activity: May Not Drive - for 6 months Home Medications: Medications to take at Discharge Citalopram [Celexa] 40 mg PO DAILY 04/19/16 Lisinopril [Zestril] 5 mg PO DAILY 04/19/16 Levothyroxine [Synthroid] 100 mcg PO MOTUWETHFRSA 03/12/17 glyBURIDE [Micronase] 10 mg PO DAILY 03/12/17 Amitriptyline HCl [Elavil] 100 mg PO QHS PRN 08/16/17 Alogliptin Benzoate [Alogliptin] 12.5 mg PO DAILY 09/15/17 Cranberry 400 mg PO QHS 09/15/17 Cyclobenzaprine HCl 10 mg PO BID PRN 09/15/17 Sertraline HCl [Zoloft] 50 mg PO DAILY 09/15/17 Simvastatin [Zocor] 40 mg PO QHS 09/15/17 Valacyclovir HCl [Valacyclovir] 500 mg PO DAILY 09/15/17 Primary Care Physician: Ivan Bello DO [Primary Care Provider] - Please follow up with your Primary Care Physician in: in 5-7 days Please Follow Up With: Manuela Bills MD When: in 3-4 weeks Disposition: Home Minutes spent on discharge:: 35 Patient Condition:: Stable Medical Necessity - Tobacco Use Smoking Status: Former smoker Meaningful Use Info Meaningful Use Diagnoses (Choose all that apply): None applicable Code Visit OBSV E&M: 47775 Observation care discharge
--- NOTE | 2017-09-16 14:48 | CASEMGMT ---
SW met w/pt in room in regard to pt's depression and new onset of seizures. Pt states she has a lot going on, is getting , has to move. She states she spoke w/the neurologist, he said the Wellbutrin she is on may have caused the seizure. She states she just started the Wellbutrin a couple of weeks ago. Pt states she struggles with anxiety as well. Pt goes to counseling and sees a psychiatrist at [facility], and pt is satisfied w/her services. She plans to call the psychiatrist to prescribe a different medication. Pt denies being suicidal at this time. Pt states also that she was here in the hospital in February w/kidney stones, and her employer put her on permanent leave of absence, and said she could reapply for her job. Pt states she did not want to go back to work for that company. 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 She states they will still have a job for her, she states she had the seizure at work and they are the ones that called the squad. NAZIA offered support to pt. No further needs are anticipated at this time, though SW remains available should any additional needs arise. 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
[2017-09-16 15:15] VITALS: BP 130/80; PULSE 84; RESP 16; TEMP 36.8; O2SAT 96
== END 2017-09-16 14:09 | disposition home or self-care (01) ==
LOC: ED 17:41 → PCU 18:11
PROVIDERS: Admitting Provider Internal Medicine; Emergency Provider Emergency Medicine; Family Provider Student in an Organized Health Care Education/Training Program; PCP Student in an Organized Health Care Education/Training Program; Visit Provider Internal Medicine
DX: G40.89 Other seizures (principal); N28.9 Disorder of kidney and ureter, unspecified; E11.9 Type 2 diabetes mellitus without complications; I10 Essential (primary) hypertension; E78.5 Hyperlipidemia, unspecified; E03.9 Hypothyroidism, unspecified; E66.9 Obesity, unspecified; F32.9 Major depressive disorder, single episode, unspecified; Z79.899 Other long term (current) drug therapy; Z68.31 Body mass index [BMI] 31.0-31.9, adult; Z71.3 Dietary counseling and surveillance; Z87.891 Personal history of nicotine dependence
CPT/HCPCS: 70450; 70551; 80048; 80307; 81001; 82962; 84484; 85025; 93005; 95819; 96372; 99218; 99285; A4216; G0378

== ENCOUNTER 2018-07-05 23:38 | Emergency (ER) | payer MEDICAID, SELFPAY ==
[2018-07-05 23:39] VITALS: BP 161/89; PULSE 109; RESP 18; TEMP 37; O2SAT 97; BMI 33.8
--- NOTE | 2018-07-05 23:54 | ED.DCSUM_ITS ---
History of Present Illness Chief Complaint: Constipation Informant: Patient - Abdominal Pain/Flank Pain Onset: Hours - 5 Context: Gradual Onset Timing: Continuous Quality: - - uncomfortable Location: - - rectal Current Severity: Moderate Maximum Severity: Moderate Worsened by: Nothing Relieved by: Nothing - tried fleets enema and a suppository; not sure if did them corrrectly - Nausea/Vomiting/Emesis GI Symptom: Nausea, - - no abd pain. Negative for: Vomiting - Diarrhea/Melena/Hematochezia GI Symptom: Hematochezia - small amt after straining a lot Associated Symptoms: Negative for: Dysuria, Frequency, Urgency Narrative: States she has had constipation issues before but never like this. Hannibal the need to go about 5 hours ago, but unable. She was straining a lot. She now feels like she has a small hemorrhoid but it is not super painful, however her constipation is making it difficult for her to sit. No abdominal pain. She has had bilateral tubal lipectomy but no other abdominal surgeries. - Past Medical History (1) Bilateral kidney stones Status: Chronic (2) Seizure Status: Chronic (3) DM type 2 (diabetes mellitus, type 2) Status: Chronic (4) HTN (hypertension) Status: Chronic (5) Hyperlipidemia Status: Chronic (6) Hypothyroid Status: Chronic Past Medical History - Allergies and Home Meds Allergies/Adverse Reactions: Allergies metformin Adverse Reaction (Verified 09/15/17 14:56) Upset Stomach Primary Care Physician: Ivan Bello DO [Primary Care Provider] - Surgical History: no surgical history Smoking Status: Former smoker Drugs: None Review of Systems General: Denies: Chills, Fever Cardiovascular: Denies: Chest pain, Palpitations Respiratory: Denies: Dyspnea, Cough Gastrointestinal: Reports: Nausea, Constipation, Hematochezia. Denies: Abdomina l pain, Vomiting, Melena Physical Exam Vital Signs/Narrative: Vital Signs Temp Pulse Resp BP Pulse Ox 07/05/18 23:39 98.6 F 109 H 18 161/89 H 97 Inital Vital Signs reviewed: Yes General: Well nourished, Well developed, Obese, No Acute Distress Head: Normocephalic, Atraumatic Eyes: Perrl, EOMI Abdomen: Soft, Nontender, Nondistended, Normal bowel sounds Rectal: Tenderness - mild at small nonbleeding external hemorrhoid around 3 O'clock; fullness anterior aspect of anus, no tenderness/erythema/fluctuance. no other areas of tenderness. no thrombosed hemorrhoids. Skin: Normal color, No rash, No Trauma Neurological: Alert, Oriented x3, Cranial nerves II-XII grossly intact, Normal Strength, Normal Sensation Psychological: Normal affect, Normal Mood Diagnostic/Tx/Re-eval - Medical Decision Making Patient was amenable to an enema which was given, she had a large bowel movement felt much better. ED Disposition - Plan for ED Patient: Disposition: Home or Assisted Living Diagnosis: Constipation, External hemorrhoids without complication Instructions: ED Constipation, ED Hemorrhoids Referrals: Ivan Bello DO [Primary Care Provider] - As Needed
[2018-07-06 01:00] VITALS: BP 149/83; PULSE 83; RESP 12; O2SAT 99
== END 2018-07-06 01:02 | disposition home or self-care (01) ==
PROVIDERS: Emergency Provider Emergency Medicine; Family Provider Student in an Organized Health Care Education/Training Program; PCP Student in an Organized Health Care Education/Training Program
DX: K59.00 Constipation, unspecified (principal); K64.4 Residual hemorrhoidal skin tags; Z87.891 Personal history of nicotine dependence; E11.9 Type 2 diabetes mellitus without complications; I10 Essential (primary) hypertension; E78.5 Hyperlipidemia, unspecified; E03.9 Hypothyroidism, unspecified; Z87.442 Personal history of urinary calculi
CPT/HCPCS: 99284

== ENCOUNTER 2019-04-18 17:39 | Emergency (ER) | payer MEDICAID, SELFPAY ==
[2019-01-13 15:09] VITALS: BMI 33.8
[2019-04-18 17:40] VITALS: BP 149/93; PULSE 87; RESP 16; TEMP 35.9; O2SAT 97; BMI 32.5
--- NOTE | 2019-04-18 19:09 | CT_ITS ---
STUDY: CT ABDOMEN AND PELVIS WITH CONTRAST REASON FOR EXAM: Female, 53 years old. CONSTIPATION X 2 DAYS/DIARRHEA TODAY WITH BLOOD/BLOATING RADIATION DOSAGE (If Supplied By Facility): CTDIvol = ( 14.65 ) mGy, DLP = ( 980.71 ) mGycm TECHNIQUE: Transaxial images were obtained from the dome of the diaphragm to the symphysis pubis without oral contrast. Oral and amp; IV Gastrografin and amp; 100mL Isovue-370 was administered. Sagittal and coronal images were reconstructed. Individualized dose optimization techniques were used for this CT. COMPARISON: August 20, 2017 FINDINGS: The visualized lung bases are unremarkable. The visualized portions of the heart are within normal limits. Normal liver. Cholelithiasis. No significant dilatation of extrahepatic biliary system. Normal spleen. Normal pancreas. Normal bilateral adrenal glands. Normal right kidney. Normal left kidney. Normal visualized stomach. Normal small intestine. Wall thickening of the descending and sigmoid colon. Proximal colonic fecal retention. The appendix is visualized and appears normal. Normal abdominal aorta. Normal inferior vena cava. Normal retroperitoneum. Normal urinary bladder. Mild pelvic fluid. Normal abdominal wall. Normal osseous structures. CT/Abdomen/Pelvis WITH Contrast IMPRESSION: Wall thickening of the descending colon and sigmoid colon likely due to a regional form of colitis. Mild pelvic fluid. Cholelithiasis. Electronically Signed: Perfecto Baugh DO at 21:18 EST Tel [phone], Service support ,
[2019-04-18 19:24] LABS: Bacteria 0 SEEN /hpf (None Seen); Mucous, Urine 0 SEEN /hpf (<or=2+); Red Blood Cells-Urine 0 SEEN /hpf (0-5); Squamous Epithelial Cells - UA 0 SEEN /hpf (5-10)
[2019-04-18 19:28] LABS: Absolute Neutrophil Count 13.2 X10^3/uL (2.0-7.7); Basophil# 0.04 X10^3/uL; Basophil% 0.2 % (0-1); Eosinophil# 0.18 X10^3/uL; Eosinophils% 1.1 % (0-5); Hematocrit 41.6 % (37-47); Hemoglobin 13.7 g/dL (12.0-15.0); Mean Corp Hgb Conc 32.9 g/dL (32-36); Mean Corpuscular Hgb 29.3 pg (27.0-32.0); Mean Corpuscular Volume 89.1 fL (81-99); Mean Platelet Vol. 10.6 fl (6.2-12.0); Monocyte# 0.74 X10^3/uL; Monocyte% 4.4 % (0-10); NRBC Flagged by Analyzer 0 % (0-5); Neutrophil # 13.21 X10^3/uL (2.7-7.7); Neutrophil % 79.1 % (47-70); Platelet Count 274 K/mm3 (150-450); RBC Distribution Width CV 13.9 % (11.6-14.6); RBC Distribution Width SD 44.5 fl (35.1-43.9); Red Blood Count 4.67 M/mm3 (4.2-5.4); White Blood Count 16.7 K/mm3 (4.4-11.0)
[2019-04-18 19:32] LABS: Color, Urine Yellow (Yellow); Glucose, Dipstick 1000 mg/dl (Normal); Ketone-Dipstick Negative (Negative); Leukocyte Esterase-Dipstick 25 /ul (Negative); Nitrite-Dipstick Negative (Negative); Occult Blood-Urine Negative /ul (Negative); Protein-Dipstick 15 mg/dl (Negative); Specific Gravity, Urine 1.015 (1.002-1.030); Urine Bilirubin Dipstick Negative (Negative); Urine Clarity Clear (Clear); Urine Urobilinogen Normal (Normal)
[2019-04-18] MEDS: 0.9% Normal Saline 1,000 ML 150 ML IV (19:37)
[2019-04-18 19:38] LABS: White Blood Cells 0-5 SEEN /hpf (0-5)
[2019-04-18] MEDS: Ondansetron 4 MG/2 ML Vial IV (19:40)
[2019-04-18 19:41] LABS: Prothrombin Time (Protime)PT. 12.5 SECONDS (11.7-14.9)
[2019-04-18 19:42] LABS: Partial Thromboplast Time 27.9 Seconds (24.1-36.2)
[2019-04-18 19:46] LABS: AST(SGOT) 30 U/L (15-37); Alanine Aminotransfer ALT/SGPT 25 U/L (13-56); Albumin, Serum 3.8 g/dL (3.2-5.0); Alkaline Phosphatase 106 U/L (45-117); Anion Gap 8 (5-15); BUN 17 mg/dL (7-18); BUN/Creat Ratio 13.2 RATIO (10-20); Bilirubin, Direct 0.09 mg/dL (0.00-0.30); Calcium,Total 8.8 mg/dL (8.5-10.1); Chloride 104 mmol/L (98-107); Creatinine, Serum 1.29 mg/dL (0.55-1.02); EST Glomerular Filtration Rate 46 mL/min (>60); Est Glom Filt Rate - Afr Amer 56 mL/min (>60); Estimated Creatinine Clearance 40.81 ml/min; Glucose 213 mg/dL (74-106); Potassium 4.7 mmol/L (3.5-5.1); Protein, Total 7.8 g/dL (6.4-8.2); Sodium Level 137 mmol/L (136-145)
[2019-04-18 21:58] VITALS: BP 157/80; PULSE 78; RESP 16; O2SAT 98
--- NOTE | 2019-04-18 22:20 | ED.DCSUM_ITS ---
History of Present Illness Chief Complaint: GI Bleed Informant: Patient Onset: Today Current Severity: Mild Maximum Severity: Moderate Narrative: Patient presents with history of constipation now having blood with stool. She states for the past 6 months she is been having difficulty with constipation. She was started on stool softeners by her primary care physician. She states that 1 AM this morning she woke up nauseated with sweats and diarrhea. Around 330 this afternoon she passed blood rectally. She has not had a bowel movement since that time. She did call her primary care physician who encouraged her to come to the emergency room. She denies prior colonoscopy. Her primary concern is that her grandmother had colon cancer. - Past Medical History (1) Seizure Status: Chronic (2) Bilateral kidney stones Status: Chronic (3) DM type 2 (diabetes mellitus, type 2) Status: Chronic (4) HTN (hypertension) Status: Chronic (5) Hyperlipidemia Status: Chronic (6) Hypothyroid Status: Chronic Past Medical History - Allergies and Home Meds Allergies/Adverse Reactions: Allergies metformin Adverse Reaction (Verified 01/13/19 15:01) Upset Stomach Primary Care Physician: Ivan Bello DO [Primary Care Provider] - 1 Week Page King MD [STAFF PHYSICIAN] - 1-2 Weeks Prior records reviewed: Yes Surgical History: no surgical history Smoking Status: Former smoker Review of Systems General: Denies: Chills, Fever Eyes: Denies: Visual changes - bilaterally ENT: Denies: Bilateral ear pain Cardiovascular: Denies: Chest pain Respiratory: Denies: Dyspnea, Cough Gastrointestinal: Reports: Abdominal pain, Nausea, Diarrhea, Hematochezia. Denies: Vomiting Genitourinary: Denies: Dysuria, Frequency Musculoskeletal: Denies: Back pain, Extremity Pain Neurological: Denies: Headache Hematologic: Denies: Easy bruising Allergy: Denies: Uticaria Physical Exam Vital Signs/Narrative: Vital Signs Pulse Resp BP Pulse Ox 04/18/19 21:58 78 16 157/80 H 98 Inital Vital Signs reviewed: Yes General: Well nourished, Well developed Head: Normocephalic ENT: Moist mucous membranes Neck: Supple Cardiovascular: Regular rate, Regular rhythm Respiratory: No distress, CTA bilaterally Abdomen: Soft, Normal bowel sounds, Tender - Mild lower abdominal tenderness. No guarding or rebound. Extremities: Nontender Skin: Normal color, No rash Neurological: Alert, Oriented x3, Normal Strength, Normal Sensation Psychological: Normal affect Diagnostic/Tx/Re-eval Impressions Abdomen/Pelvis CT 04/18/19 19:09 IMPRESSION: Wall thickening of the descending colon and sigmoid colon likely due to a regional form of colitis. Mild pelvic fluid. Cholelithiasis. Electronically Signed: Perfecto Baugh DO at 21:18 EST Tel [phone], Service support , 04/18/19 19:09 Abdomen/Pelvis WITH Contrast [CT] Stat Laboratory Results 04/18/19 04/18/19 04/18/19 18:53 19:20 19:20 WBC 16.7 H RBC 4.67 Hgb 13.7 Hct 41.6 MCV 89.1 MCH 29.3 MCHC 32.9 RDW Std Deviation 44.5 H RDW Coeff of Olga 13.9 Plt Count 274 MPV 10.6 Immature Gran % (Auto) 0.200 Neut % (Auto) 79.1 H Lymph % (Auto) 15.0 L [place] % (Auto) 4.4 Eos % (Auto) 1.1 Baso % (Auto) 0.2 Absolute Neuts (auto) 13.2 H Absolute Lymphs (auto) 2.50 Nucleated RBC % 0 PT 12.5 INR 1.0 APTT 27.9 Sodium Potassium Chloride Carbon Dioxide Anion Gap BUN Creatinine Estim Creat Clear Calc Est GFR (MDRD) Af Amer Est GFR (MDRD) Non-Af BUN/Creatinine Ratio Glucose Calcium Total Bilirubin Direct Bilirubin AST ALT Alkaline Phosphatase Total Protein Albumin Globulin Urine Color Yellow Urine Clarity Clear Urine pH 5.0 Ur Specific Renner 1.015 Urine Protein 15 H Urine Glucose (UA) 1000 H Urine Ketones Negative Urine Occult Blood Negative Urine Nitrite Negative Urine Bilirubin Negative Urine Urobilinogen Normal Ur Leukocyte Esterase 25 H Urine RBC 0 SEEN Urine WBC 0-5 SEEN Ur Squamous Epith Cells 0 SEEN Urine Bacteria 0 SEEN Urine Mucus 0 SEEN 04/18/19 19:20 WBC RBC Hgb Hct MCV MCH MCHC RDW Std Deviation RDW Coeff of Olga Plt Count MPV Immature Gran % (Auto) Neut % (Auto) Lymph % (Auto) [place] % (Auto) Eos % (Auto) Baso % (Auto) Absolute Neuts (auto) Absolute Lymphs (auto) Nucleated RBC % PT INR APTT Sodium 137 Potassium 4.7 Chloride 104 Carbon Dioxide 25.0 Anion Gap 8 BUN 17 Creatinine 1.29 H Estim Creat Clear Calc 40.81 Est GFR (MDRD) Af Amer 56 L Est GFR (MDRD) Non-Af 46 L BUN/Creatinine Ratio 13.2 Glucose 213 H Calcium 8.8 Total Bilirubin 0.60 Direct Bilirubin 0.09 AST 30 ALT 25 Alkaline Phosphatase 106 Total Protein 7.8 Albumin 3.8 Globulin 4.0 Urine Color Urine Clarity Urine pH Ur Specific Renner Urine Protein Urine Glucose (UA) Urine Ketones Urine Occult Blood Urine Nitrite Urine Bilirubin Urine Urobilinogen Ur Leukocyte Esterase Urine RBC Urine WBC Ur Squamous Epith Cells Urine Bacteria Urine Mucus - Medical Decision Making Patient was given Zofran and IV fluids. Test results are discussed with her. She does have evidence of colitis of the descending and sigmoid colon. She will be treated with Cipro and Flagyl. She is referred to surgery for follow-up as I advised her she will need a colonoscopy at some point. ED Disposition - Plan for ED Patient: Disposition: Home or Assisted Living Diagnosis: Colitis Instructions: Bacterial Gastroenteritis Prescriptions: Ciprofloxacin [Cipro] 500 mg PO BID #14 tab Transmission Status: Received by SERENE CARL RD metroNIDAZOLE [Flagyl] 500 mg PO Q6H #40 tab Transmission Status: Received by SERENE CARL RD Referrals: Ivan Bello DO [Primary Care Provider] - 1 Week Page King MD [STAFF PHYSICIAN] - 1-2 Weeks
[2019-04-18] MEDS: Ciprofloxacin 500 MG Tablet PO (22:33)
[2019-04-18] MEDS: metroNIDAZOLE 500 MG Tablet PO (22:33)
== END 2019-04-18 22:34 | disposition home or self-care (01) ==
PROVIDERS: Emergency Provider Emergency Medicine; PCP Student in an Organized Health Care Education/Training Program
DX: K52.9 Noninfective gastroenteritis and colitis, unspecified (principal); K80.20 Calculus of gallbladder without cholecystitis without obstruction; E03.9 Hypothyroidism, unspecified; E11.9 Type 2 diabetes mellitus without complications; E78.5 Hyperlipidemia, unspecified; I10 Essential (primary) hypertension; Z87.442 Personal history of urinary calculi; Z87.891 Personal history of nicotine dependence
CPT/HCPCS: 74177; 80048; 80076; 81001; 85025; 85610; 85730; 96361; 96374; 99284; J7030; Q9967; A4216; J2405

== ENCOUNTER 2019-07-17 04:34 | Emergency (ER) | payer MEDICAID, SELFPAY ==
[2019-07-17 04:35] VITALS: BP 148/72; PULSE 72; RESP 18; TEMP 36.3; O2SAT 99; BMI 31.1
--- NOTE | 2019-07-17 04:45 | RAD_ITS ---
STUDY: X-RAY - LEFT ANKLE REASON FOR EXAM: Female, 54 years old. Pt fell this morning. Left lateral ankle pain. TECHNIQUE: 3 view(s) of the ankle. COMPARISON: None. FINDINGS: Normal visualized distal tibia and fibula. Normal medial and lateral malleoli. Normal tibiotalar articulation and ankle mortise. There is a plantar and Achilles spur. The visualized subtalar, talonavicular, calcaneocuboid and tarsal articulations are normal. There is soft tissue edema. RAD/Ankle min 3 Views IMPRESSION: Soft tissue edema. No visualized acute fracture. Electronically Signed: Teresa Phan MD at 5:05 EDT Tel , Service support ,
[2019-07-17 05:15] VITALS: BP 148/72; PULSE 72; RESP 18; O2SAT 99
--- NOTE | 2019-07-17 05:15 | ED.VIS.GEN ---
History of Present Illness Chief Complaint: Lower Extremity Injury Informant: Patient Narrative: She stated she rolled her left ankle inwards yesterday afternoon. She was walking up a step and misstep and rolled it inwards. She has pain in the outer portion of the ankle. Current severity is moderate. Able to walk but with a hobble. Does not want crutches. She has rolled her ankle remotely. No previous ankle fracture. She has been resting icing using Tylenol and elevating. - Past Medical History (1) Acute renal insufficiency Status: Acute (2) Nausea & vomiting Status: Acute (3) Renal colic, bilateral Status: Acute (4) Right otitis media Status: Acute (5) Tachycardia Status: Acute (6) Bilateral kidney stones Status: Chronic (7) Bilateral kidney stones Status: Chronic (8) DM type 2 (diabetes mellitus, type 2) Status: Chronic (9) HTN (hypertension) Status: Chronic (10) Hyperlipidemia Status: Chronic (11) Hypothyroid Status: Chronic (12) Seizure Status: Chronic (13) Seizure Status: Chronic Past Medical History - Allergies and Home Meds Allergies/Adverse Reactions: Allergies metformin Adverse Reaction (Verified 07/17/19 04:38) Upset Stomach Primary Care Physician: Ivan Bello DO [Primary Care Provider] - Prior records reviewed: Yes Past Medical History: - - See problem list Surgical History: no surgical history Smoking Status: Never smoker Alcohol: None Drugs: None Review of Systems General: Denies: Chills, Fever, Sweats Eyes: Denies: Visual changes - bilaterally, Diplopia ENT: Denies: Rhinorrhea, Sore throat Cardiovascular: Denies: Chest pain, Palpitations Respiratory: Denies: Dyspnea, Cough, Dyspnea on exertion Gastrointestinal: Denies: Abdominal pain, Nausea, Vomiting, Diarrhea, Melena, Hematochezia Genitourinary: Denies: Dysuria, Hematuria, Frequency Musculoskeletal: Reports: Extremity Pain. Denies: Back pain Skin: Denies: Rash, Wounds Neurological: Denies: Headache, Weakness, Numbness Physical Exam Vital Signs/Narrative: Vital Signs Temp Pulse Resp BP Pulse Ox 07/17/19 04:35 97.3 F L 72 18 148/72 H 99 General: Well nourished, Well developed, No Acute Distress Head: Normocephalic, Atraumatic Eyes: Perrl, EOMI ENT: Moist mucous membranes, No rhinorrhea Neck: Supple, Nontender Cardiovascular: Regular rate, Regular rhythm, No murmurs Respiratory: No distress, CTA bilaterally, Chest nontender Abdomen: Soft, Nontender, Nondistended, Normal bowel sounds Back: Nontender, Normal Inspection Extremities: Tenderness - Tenderness left lateral malleolus with soft tissue swelling and edema. Decreased range of motion of the ankle secondary to pain. No foot tenderness. No proximal fibular head tenderness. Distal neurovascular intact. Negative for: Nontender, No edema Skin: Normal color, No rash Neurological: Alert, Oriented x3, Cranial nerves II-XII grossly intact, Normal Strength, Normal Sensation Psychological: Normal affect, Normal Mood Diagnostic/Tx/Re-eval - Medical Decision Making X-ray of the ankle shows no fracture. Positive soft tissue swelling. Patient given Aircast. Given ibuprofen. Will rest and ice. Given work restrictions. We will continue Tylenol or ibuprofen. At this time she has an ankle sprain ED Disposition - Plan for ED Patient: Disposition: Home or Assisted Living Diagnosis: Left ankle sprain Instructions: ED Sprain Ankle W X Ray Referrals: Ivan Bello DO [Primary Care Provider] -
[2019-07-17] MEDS: Ibuprofen 600 MG Tablet PO (05:23)
== END 2019-07-17 05:25 | disposition home or self-care (01) ==
PROVIDERS: Emergency Provider Emergency Medicine; PCP Student in an Organized Health Care Education/Training Program
DX: S93.402A Sprain of unspecified ligament of left ankle, initial encounter (principal); E03.9 Hypothyroidism, unspecified; X50.1XXA Overexertion from prolonged static or awkward postures, initial encounter; Y92.9 Unspecified place or not applicable; Y99.9 Unspecified external cause status; E11.9 Type 2 diabetes mellitus without complications; E78.5 Hyperlipidemia, unspecified; I10 Essential (primary) hypertension; Z87.442 Personal history of urinary calculi
CPT/HCPCS: 73610; 90471; 99284

== ENCOUNTER 2020-06-19 10:57 | Emergency (ER) | payer OTHER, MEDICAID, SELFPAY ==
[2020-06-19 11:00] VITALS: BP 134/71; PULSE 87; RESP 16; TEMP 35.2; O2SAT 97; BMI 27.5
--- NOTE | 2020-06-19 11:10 | EX.ED.UPPERE ---
HPI History of Present Illness Chief Complaint: Upper Extremity Injury Narrative Narrative: Patient presents with left hand pain after crush injury at work. She has no other injury. She is not prone to easy bleeding. [facility] Medical History (Updated 06/19/20 @ 12:[address] Jarek Coronel MD) Arthritis Diabetes HTN (hypertension) Kidney stones Knee pain Shoulder pain SOB (shortness of breath) Thyroid disease Home Medications citalopram 40 mg PO DAILY 04/19/16 [History Last Taken 09/15/17] lisinopril [Zestril] 5 mg PO DAILY 04/19/16 [History Last Taken 09/15/17] glyburide 10 mg PO DAILY 03/12/17 [History Last Taken 09/15/17] levothyroxine 100 mcg PO MOTUWETHFRSA 03/12/17 [History Last Taken 09/15/17] amitriptyline 100 mg PO QHS PRN 08/16/17 [History Last Taken 09/14/17] alogliptin 12.5 mg PO DAILY 09/15/17 [History Last Taken 09/15/17] cranberry 400 mg PO QHS 09/15/17 [History Last Taken 09/14/17] cyclobenzaprine 10 mg PO BID PRN 09/15/17 [History Last Taken 09/14/17] sertraline [Zoloft] 50 mg PO DAILY 09/15/17 [History Last Taken 09/15/17] simvastatin 40 mg PO QHS 09/15/17 [History Last Taken 09/14/17] valacyclovir 500 mg PO DAILY 09/15/17 [History Last Taken 09/15/17] ciprofloxacin HCl 500 mg PO BID #14 tab 04/18/19 [Rx Last Taken Unknown] metronidazole 500 mg PO Q6H #40 tab 04/18/19 [Rx Last Taken Unknown] Allergy/AdvReac Type Severity Reaction Status Date / Time metformin AdvReac Upset Verified 06/19/20 11:00 Stomach SEIZURE MED Allergy Other Uncoded 06/19/20 11:00 Surgical History History of tubal ligation Social History (Updated 01/13/19 @ 15:14 by Gato CASTILLO, PA) Smoking Status: Never smoker alcohol intake: never ROS ROS ED ROS Narrative Past medical history: none Medications: Reviewed Social history: Noncontributory Review of systems: Musculoskeletal: Left hand crush injury Skin: No lacerations, small abrasion Neurological: No weakness or paresthesias Hematologic: No easy bleeding or easy bruising EXAM Physical Exam Narrative Exam Narrative: Physical exam General: Patient does not appear in significant distress . Head: Normocephalic, Atraumatic Neck: No C-spine tenderness Cardiovascular: Regular rate, Regular rhythm Respiratory: No distress, CTA bilaterally Back: Nontender, Normal Inspection. Extremities: Left hand shows a dorsal contusion with a small hematoma. There is no significant bony tenderness she has normal strength and sensation. Normal capillary refill distally. Skin: No abrasions, no lacerations Neurological: Normal strength and sensation Const Vital Signs: 06/19/20 11:00 Temperature 95.4 F L Temperature Source Temporal Pulse Rate 87 Respiratory Rate 16 Blood Pressure 134/71 H Blood Pressure Mean 92 Pulse Ox 97 Oxygen Delivery Method Room Air MDM MDM MDM Narrative Medical decision making narrative: Patient has a normal x-ray. I will discharge her in stable condition. Radiography Diagnostic Testing: Hand x-ray interpreted by me does not show any fracture. Discharge Plan Triage Chief Complaint: Upper Extremity Injury ED Provider: Jarek Coronel Dx/Rx/DC Orders Clinical Impression: Contusion of hand Instructions: ED Hand Contusion Prescriptions: No Action citalopram 20 MG tablet 40 mg PO DAILY RF: 0 lisinopril [Zestril] 5 MG tablet 5 mg PO DAILY RF: 0 glyburide 5 MG tablet 10 mg PO DAILY RF: 0 levothyroxine 100 MCG tablet 100 mcg PO MOTUWETHFRSA RF: 0 amitriptyline 25 MG tablet 100 mg PO QHS PRN (Reason: Sleep) RF: 0 cyclobenzaprine 10 MG tablet 10 mg PO BID PRN (Reason: Spasms) RF: 0 valacyclovir 500 MG tablet 500 mg PO DAILY RF: 0 simvastatin 40 MG tablet 40 mg PO QHS RF: 0 cranberry 400 MG capsule 400 mg PO QHS RF: 0 sertraline [Zoloft] 50 MG tablet 50 mg PO DAILY RF: 0 alogliptin 12.5 MG tablet 12.5 mg PO DAILY RF: 0 ciprofloxacin HCl 500 MG tablet 500 mg PO BID Qty: 14 RF: 0 metronidazole 500 MG tablet 500 mg PO Q6H Qty: 40 RF: 0 Primary Care Provider: Ivan Bello Referrals: Ivan Bello DO [Primary Care Provider] - Jarek Coronel MD [Emergency Provider] - [facility] - 2 Days Disposition Disposition: Home, self care
--- NOTE | 2020-06-19 11:15 | RAD_ITS ---
STUDY: X-RAY - LEFT HAND REASON FOR EXAM: Female, 54 years old. trauma TECHNIQUE: 3 view(s) of the hand. COMPARISON: None. FINDINGS: No acute fracture, dislocation or osseous destruction. Minimal joint space narrowing. No significant productive changes. No significant soft tissue swelling. RAD/Hand Min 3 Views IMPRESSION: Left hand intact Electronically Signed: Jake Haley DO at 12:35 EDT Tel , Service support ,
[2020-06-19 12:53] VITALS: BP 134/77; PULSE 62; RESP 15; O2SAT 98
== END 2020-06-19 12:54 | disposition home or self-care (01) ==
PROVIDERS: Emergency Provider Emergency Medicine; PCP Student in an Organized Health Care Education/Training Program
DX: S60.222A Contusion of left hand, initial encounter (principal); E11.9 Type 2 diabetes mellitus without complications; I10 Essential (primary) hypertension; Z79.84 Long term (current) use of oral hypoglycemic drugs; Z79.899 Other long term (current) drug therapy; X58.XXXA Exposure to other specified factors, initial encounter
CPT/HCPCS: 73130; 99282

== ENCOUNTER 2021-09-11 18:40 | Emergency (ER) | payer MEDICAID, SELFPAY ==
[2021-09-11 18:41] VITALS: BP 133/72; PULSE 81; RESP 16; TEMP 36.6; BMI 25.1
[2021-09-11 18:44] VITALS: BP 133/72; PULSE 81; RESP 16; TEMP 36.6
--- NOTE | 2021-09-11 18:58 | EDS_ITS ---
HPI History of Present Illness Chief Complaint: Back Detail of Chief Complaint: Central lower dorsal back pain Informant: patient Onset/Context/Timing Onset: Yesterday Context: Sudden Onset Chronic pain exacerbated by: Movement Injury: - (Nothing specific) Timing: Continuous Quality: Dull and Aching Location: Thoracic Current Severity: Mild Maximum Severity: Moderate Worsened by: improves with Movement Relieved by: - (Better after applying heating pad and lying on her back) Associated Symptoms Associated Symptoms: Negative for Numbness, Tingling, Radiation to Right Leg, Radiation to Left Leg, Fever, Abdominal Pain, Dysuria, Unable to Ambulate, Unable to Transfer, Urinary Retention, Urinary Incontinence, Constipation or Fecal Incontinence Narrative Narrative: Patient is a 56-year-old woman with history of hypertension, type 2 diabetes, hyperlipidemia, hypothyroidism and renal insufficiency who presents with mid back pain that radiates bilaterally worse on the left. Movement exacerbates it. She states lying flat on her back reduces the pain. She also states use of heating pad last evening helped. She took 2 Aleve with no improvement. There is no history of direct trauma. She has history of steroid use in the past. She denies history of osteoporosis or osteopenia. She denies respiratory symptoms. She denies night sweats. She denies weight loss. She did make a comment she just started working at the [employer]. 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 Prior similar symptoms: No Recent Illness/Hospitalization: No [facility] Medical History Arthritis Diabetes HTN (hypertension) Kidney stones Knee pain Shoulder pain SOB (shortness of breath) Thyroid disease Home Medications citalopram 20 mg tablet 40 mg PO DAILY DEPRESSION 04/19/16 [History Last Taken 09/15/17] lisinopril 5 mg tablet (Zestril) 5 mg PO DAILY BLOOD PRESSURE 04/19/16 [History Last Taken 09/15/17] glyburide 5 mg tablet 10 mg PO DAILY DIABETES 03/12/17 [History Last Taken 09/15/17] levothyroxine 100 mcg tablet 100 mcg PO MOTUWETHFRSA THYROID 03/12/17 [History Last Taken 09/15/17] amitriptyline 25 mg tablet 100 mg PO QHS PRN Sleep 08/16/17 [History Last Taken 09/14/17] alogliptin 12.5 mg tablet 12.5 mg PO DAILY diabetes 09/15/17 [History Last Taken 09/15/17] cranberry 400 mg capsule 400 mg PO QHS supplement 09/15/17 [History Last Taken 09/14/17] cyclobenzaprine 10 mg tablet 10 mg PO BID PRN Spasms 09/15/17 [History Last Taken 09/14/17] sertraline 50 mg tablet (Zoloft) 50 mg PO DAILY depression 09/15/17 [History Last Taken 09/15/17] simvastatin 40 mg tablet 40 mg PO QHS 09/15/17 [History Last Taken 09/14/17] valacyclovir 500 mg tablet 500 mg PO DAILY antiviral 09/15/17 [History Last Taken 09/15/17] metronidazole 500 mg tablet 500 mg PO Q6H #40 tabs 04/18/19 [Rx Last Taken Unknown] Allergy/AdvReac Type Severity Reaction Status Date / Time metformin AdvReac Upset Verified 06/28/20 13:44 Stomach SEIZURE MED Allergy Other Uncoded 06/28/20 13:44 Surgical History History of tubal ligation Social History (Updated 09/11/21 @ 19:[address] Abrahan Hernandez MD) household members: none Smoking Status: Never smoker alcohol intake: never substance use type: does not use ROS ROS ED Constitutional Constitutional ED: Denies chills, fever(s), subjective, sweats or weight loss Cardiovascular Cardiovascular: Denies chest pain, orthopnea or paroxysmal nocturnal dyspnea Respiratory/Chest Respiratory/Chest: Denies dyspnea, dyspnea on exertion, orthopnea, paroxysmal nocturnal dyspnea or sputum Gastrointestinal Gastrointestinal: Denies abdominal pain Genitourinary Genitourinary ED: Denies dysuria, hematuria or urinary frequency Musculoskeletal Musculoskeletal: Reports back pain; Denies arthralgias, myalgias or neck pain Neurologic Neurologic: Denies paresthesias or weakness EXAM Physical Exam Const Vital Signs: 09/11/21 18:41 09/11/21 18:44 Temperature 97.9 F 97.9 F Temperature Source Temporal Temporal Pulse Rate 81 81 Respiratory Rate 16 16 Blood Pressure 133/72 H 133/72 H Blood Pressure Mean 92 92 Positive well nourished and well developed General Appearance ED: well developed and NAD; Negative for pallor HEENT Reports moist mucous membranes HEENT Narrative: Ears normal. Nares patent. Negative for trauma or tenderness Eyes PERRL and EOMs intact bilaterally General Eye ED: Negative for pale conjunctiva or scleral icterus Neck no lymphadenopathy, supple and no JVD Resp normal respiratory effort and clear to auscultation bilaterally Cardio Negative for regular rate, regular rhythm, S1 normal heart sound, S2 normal heart sound or no murmurs Back/Spine normal to inspection; Negative for no thoracic nor lumbar tenderness General Back: Negative for CVA tenderness Cervical Spine: Negative for cervical spine tenderness and Negative for paracervical muscle tenderness Thoracic Spine / Upper Back: paraspinal muscle tenderness Lumbar Spine / Lower Back: Negative for ROM limited Extremity normal to inspection and no clubbing, cyanosis or edema Neuro oriented x3 and no sensory deficits noted Neuro Narrative: Gait observed normal. When patient was asked to rise from sitting position to stand to walk she moved freely with no grimacing or hesitation. Sensorium / Orientation: alert Motor Exam: strength 5/5 throughout Psych Psych Narrative: Affect and mood are depressed Skin no rashes or lesions noted and no wounds General Skin Exam: Negative for jaundice or pallor MDM MDM MDM Narrative Medical decision making narrative: Patient with mid back pain. X-ray was ordered since this occurred at work. Patient was not treated with NSAID since she has history of renal disease due to diabetes. In my opinion opiate analgesia is not warranted. Radiography X-Ray: T-Spine (Independently reviewed and interpreted by me at 1914. There is multilevel degenerative arthritic changes noted. There is no lytic or blastic lesions noted. There is no malalignment. Total of 2 views were obtained.) Discharge Plan Triage Chief Complaint: Back ED Provider: Abrahan Hernandez Dx/Rx/DC Orders Clinical Impression: Dorsal back pain, Thoracic arthritis Instructions: ED Degenerative Disk Disease, ED Back and Neck Pain, General Prescriptions: No Action citalopram 20 MG tablet 40 mg PO DAILY lisinopril [Zestril] 5 MG tablet 5 mg PO DAILY glyburide 5 MG tablet 10 mg PO DAILY levothyroxine 100 MCG tablet 100 mcg PO MOTUWETHFRSA amitriptyline 25 MG tablet 100 mg PO QHS PRN (Reason: Sleep) cyclobenzaprine 10 MG tablet 10 mg PO BID PRN (Reason: Spasms) Label Comments: valacyclovir 500 MG tablet 500 mg PO DAILY Label Comments: simvastatin 40 MG tablet 40 mg PO QHS Label Comments: cranberry 400 MG capsule 400 mg PO QHS sertraline [Zoloft] 50 MG tablet 50 mg PO DAILY alogliptin 12.5 MG tablet 12.5 mg PO DAILY Label Comments: metronidazole 500 MG tablet 500 mg PO Q6H Qty: 40 0RF Primary Care Provider: Ivan Bello Referrals: Ivan Bello DO [Primary Care Provider] - 3-5 Days if not improving Activity Restrictions/Additional Instructions: 1. Apply ice 6-10 times a day 2. Take Tylenol 500 mg every 6-8 hours for pain Disposition Disposition: Home, Self Care
--- NOTE | 2021-09-11 19:03 | RAD_ITS ---
STUDY: X-RAY - THORACIC SPINE REASON FOR EXAM: Female, 56 years old. Injury. Pain. Mid back pain since September 09. TECHNIQUE: 3 view(s) of the thoracic spine were obtained. COMPARISON: None. FINDINGS: Normal kyphosis of the thoracic spine. There is no substantial scoliosis. There is no evidence of acute fracture or loss of vertebral axial height. . Multilevel endplate spondylosis and disc space narrowing. The soft tissue structures are unremarkable. RAD/Thoracic Spine 3 Views IMPRESSION: Mild degenerative changes of the thoracic spine without acute abnormality. Electronically Signed: Leonel Shelby DO at 19:26 EDT ,
[2021-09-11 19:35] VITALS: BP 133/72; PULSE 81; RESP 16; O2SAT 97
== END 2021-09-11 19:36 | disposition home or self-care (01) ==
PROVIDERS: Emergency Provider Emergency Medicine; PCP Student in an Organized Health Care Education/Training Program; Visit Provider Emergency Medicine
DX: M47.814 Spondylosis without myelopathy or radiculopathy, thoracic region (principal); E11.9 Type 2 diabetes mellitus without complications; I10 Essential (primary) hypertension; E78.5 Hyperlipidemia, unspecified; E03.9 Hypothyroidism, unspecified; N28.9 Disorder of kidney and ureter, unspecified; Z87.442 Personal history of urinary calculi; Z79.899 Other long term (current) drug therapy; Z79.84 Long term (current) use of oral hypoglycemic drugs
CPT/HCPCS: 72072; 99282

== ENCOUNTER 2022-08-02 05:38 | Emergency (ER) | payer MEDICAID, SELFPAY ==
[2022-08-02 05:40] VITALS: BP 165/73; PULSE 69; RESP 18; TEMP 36.9; O2SAT 98; BMI 27.3
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
[2022-08-02 06:10] LABS: Bacteria 0 SEEN /hpf (None Seen); Mucous, Urine 0 SEEN /hpf (<or=2+); Squamous Epithelial Cells - UA 0 SEEN /hpf (5-10); White Blood Cells 0 SEEN /hpf (0-5)
[2022-08-02 06:12] LABS: Absolute Neutrophil Count 11.6 X10^3/uL (2.0-7.7); Basophil# 0.05 X10^3/uL; Basophil% 0.4 % (0-1); Eosinophil# 0.04 X10^3/uL; Eosinophils% 0.3 % (0-5); Hematocrit 40.8 % (37-47); Hemoglobin 13.3 g/dL (12.0-15.0); Lymphocyte % 9.7 % (19-41); Mean Corp Hgb Conc 32.6 g/dL (32-36); Mean Corpuscular Hgb 30.2 pg (27.0-32.0); Mean Corpuscular Volume 92.5 fL (81-99); Mean Platelet Vol. 10.3 fl (6.2-12.0); Monocyte# 0.39 X10^3/uL; Monocyte% 2.9 % (0-10); NRBC Flagged by Analyzer 0 % (0-5); Neutrophil % 86.4 % (47-70); Platelet Count 293 K/mm3 (150-450); RBC Distribution Width CV 13.7 % (11.6-14.6); Red Blood Count 4.41 M/mm3 (4.2-5.4); White Blood Count 13.4 K/mm3 (4.4-11.0)
[2022-08-02] MEDS: Ketorolac 15 MG/ML Vial IV (06:14)
[2022-08-02] MEDS: Morphine 4 MG/ML Syringe IV (06:14)
[2022-08-02 06:26] LABS: Anion Gap 6 (5-15); BUN 21 mg/dL (7-18); BUN/Creat Ratio 14.5 RATIO (10-20); Calcium,Total 9.8 mg/dL (8.5-10.1); Chloride 103 mmol/L (98-107); Creatinine, Serum 1.45 mg/dL (0.55-1.02); EST Glomerular Filtration Rate 40 mL/min (>60); Est Glom Filt Rate - Afr Amer 48 mL/min (>60); Estimated Creatinine Clearance 36.26 ml/min; Glucose 165 mg/dL (74-106); Potassium 4.2 mmol/L (3.5-5.1); Sodium Level 138 mmol/L (136-145)
[2022-08-02 06:32] LABS: Color, Urine Yellow (Yellow); Glucose, Dipstick 1000 mg/dl (Normal); Ketone-Dipstick 15 mg/dl (Negative); Leukocyte Esterase-Dipstick 25 /ul (Negative); Nitrite-Dipstick Negative (Negative); Occult Blood-Urine 250 /ul (Negative); Protein-Dipstick 30 mg/dl (Negative); Urine Bilirubin Dipstick Negative (Negative); Urine Clarity Cloudy (Clear); Urine Urobilinogen Normal (Normal)
[2022-08-02] MEDS: 0.9% Normal Saline 1,000 ML 250 ML IV (06:32)
[2022-08-02 07:00] LABS: Red Blood Cells-Urine > 100 SEEN /hpf (0-5)
[2022-08-02 07:49] VITALS: BP 134/69; PULSE 72; RESP 15; O2SAT 98
== END 2022-08-02 07:51 | disposition home or self-care (01) ==
PROVIDERS: Emergency Provider Emergency Medicine; PCP Student in an Organized Health Care Education/Training Program; Visit Provider Emergency Medicine
DX: N13.2 Hydronephrosis with renal and ureteral calculous obstruction (principal); E11.9 Type 2 diabetes mellitus without complications; I10 Essential (primary) hypertension; N13.4 Hydroureter; Z87.891 Personal history of nicotine dependence; K80.20 Calculus of gallbladder without cholecystitis without obstruction; K57.90 Diverticulosis of intestine, part unspecified, without perforation or abscess without bleeding; Z79.899 Other long term (current) drug therapy; E07.9 Disorder of thyroid, unspecified
CPT/HCPCS: 74176; 80048; 81001; 85025; 96361; 96374; 96375; 99282; J7030

== ENCOUNTER → 2023-12-13 | Outpatient (CLI) | payer SELFPAY ==
[2023-12-13 13:03] LABS: Absolute Lymphocyte Count 2.39 X10^3/uL (0.83-4.51); Absolute Neutrophil Count 6.1 X10^3/uL (2.0-7.7); Basophil# 0.05 X10^3/uL; Basophil% 0.5 % (0-1); Eosinophil# 0.26 X10^3/uL; Eosinophils% 2.7 % (0-5); Hematocrit 39.4 % (37-47); Hemoglobin 12.6 g/dL (12.0-15.0); Lymphocyte # 2.39 X10^3/ul (0.83-4.51); Lymphocyte % 25.2 % (19-41); Mean Corpuscular Hgb 28.3 pg (27.0-32.0); Mean Corpuscular Volume 88.3 fL (81-99); Mean Platelet Vol. 11.3 fl (6.2-12.0); Monocyte# 0.65 X10^3/uL; Monocyte% 6.8 % (0-10); NRBC Flagged by Analyzer 0 % (0-5); Neutrophil % 64.4 % (47-70); Platelet Count 286 K/mm3 (150-450); RBC Distribution Width CV 13.2 % (11.6-14.6); RBC Distribution Width SD 43.1 fl (35.1-43.9); Red Blood Count 4.46 M/mm3 (4.2-5.4); White Blood Count 9.5 K/mm3 (4.4-11.0)
[2023-12-13 13:22] LABS: Vitamin B12 561 pg/mL (211-911)
[2023-12-13 13:33] LABS: AST(SGOT) 15 U/L (15-37); Alanine Aminotransfer ALT/SGPT 22 U/L (13-56); Albumin, Serum 3.5 g/dL (3.2-5.0); Alkaline Phosphatase 87 U/L (45-117); Anion Gap 5 (5-15); BUN 30 mg/dL (7-18); BUN/Creat Ratio 22.1 RATIO (10-20); Calcium,Total 9.1 mg/dL (8.5-10.1); Chloride 105 mmol/L (98-107); Cholesterol 331 mg/dL (200); Creatinine, Serum 1.36 mg/dL (0.55-1.02); EST Glomerular Filtration Rate 43 mL/min (>60); Est Glom Filt Rate - Afr Amer 52 mL/min (>60); Globulin 3.6 g/dL (2.2-4.2); Glucose 276 mg/dL (74-106); High Density Lipoprotein 54 mg/dL; Potassium 4.4 mmol/L (3.5-5.1); Protein, Total 7.1 g/dL (6.4-8.2); Sodium Level 140 mmol/L (136-145); T4 Free Direct 0.54 ng/dL (0.76-1.46); Triglycerides 346 mg/dL; Very Low Density Lipoprotein 69 mg/dL (5-40)
[2023-12-14 13:28] LABS: Microalbumin,Random Urine 80.7 mg/L (NO RANGE EST.)
== END | disposition home or self-care (01) ==
LOC: PAVLAB 11:53 → LAB 12:02
PROVIDERS: PCP Student in an Organized Health Care Education/Training Program; Referring Provider Family Medicine; Visit Provider Family Medicine
DX: E11.65 Type 2 diabetes mellitus with hyperglycemia (principal); I10 Essential (primary) hypertension; E03.9 Hypothyroidism, unspecified; E53.8 Deficiency of other specified B group vitamins; E55.9 Vitamin D deficiency, unspecified
CPT/HCPCS: 36415; 80053; 80061; 82043; 82306; 82607; 84439; 84443; 85025

== ENCOUNTER → 2024-01-11 | Outpatient (CLI) | payer BC, SELFPAY ==
[2024-01-11 14:30] LABS: Color, Urine Yellow (Yellow); Glucose, Dipstick Normal (Normal); Ketone-Dipstick Negative (Negative); Leukocyte Esterase-Dipstick 500 /ul (Negative); Nitrite-Dipstick Negative (Negative); Occult Blood-Urine 10 /ul (Negative); Protein-Dipstick Negative (Negative); Specific Gravity, Urine 1.015 (1.002-1.030); Urine Bilirubin Dipstick Negative (Negative); Urine Clarity Clear (Clear); Urine Urobilinogen Normal (Normal)
== END | disposition home or self-care (01) ==
LOC: LABSPEC 12:03
PROVIDERS: PCP Student in an Organized Health Care Education/Training Program; Visit Provider Student in an Organized Health Care Education/Training Program
DX: R30.0 Dysuria (principal)
CPT/HCPCS: 81002; 87086